=== PATIENT | female | born 1950 | race Caucasian/White ===

== ENCOUNTER 2017-07-13 07:27 | Inpatient (IN) ==
[2017-07-13 08:40] LABS: Basophils % 0.2 % (0.0-0.8); Eosinophils # 0.1 10*3/uL (0.0-0.87); Eosinophils % 0.8 % (0.00-10.9); Hematocrit 32.1 VOL% (35.7-47.0); Hemoglobin 10.6 GM/DL (12.0-16.0); Immature Granulocytes % 0.5 %; Immature Granulocytes Absolute 0.08 #; Lymphocytes # 0.8 10*3/uL (1.4-4.0); Lymphocytes % 4.7 % (21.3-54.2); Mean Corpuscular Hemoglobin 30 PG (27-34); Mean Corpuscular Volume 90.2 FL (87-102); Mean Platelet Volume 10.1 FL (9.6-12.0); Monocytes # 0.6 10*3/uL (0.11-0.8); Monocytes % 3.3 % (1.7-12.7); Neutrophils # 15.1 10*3/uL (1.4-7.4); Neutrophils % 90.5 % (38.7-73.9); Platelet Count 191 T/CUMM (130-400); Red Blood Count 3.56 MC/CUMM (3.8-5.5); White Blood Count 16.7 T/CUMM (4-12)
[2017-07-13 08:55] LABS: Apearance,Urine CLEAR (Clear); Bilirubin,Urine Negative (Negative); Blood, Urine Negative (Negative); Glucose,Urine (UA) Negative (Negative); Ketones,Urine 5 mg/dL (Negative); Mucus,Urine Occasional /LPF (Occasional); Nitrite,Urine Negative (Negative); Protein,Urine Negative; RBC,Urine 1 /HPF (0-4); Squamous Epithelial Cell,Urine Occasional /HPF (0-10); Urine Color Yellow (Yellow); Urine Specific Gravity 1.021 (1.001-1.035); WBC,Urine 1 /HPF (0-6)
[2017-07-13 08:58] LABS: Lactic Acid 2.8 MMOL/L (0.4-2.0)
[2017-07-13 08:59] LABS: Band Neutrophils 3 % (0-10); Lymphocytes 7 % (20-55); Microcytosis 1+; Segmented Neutrophils 89 % (50-85); Tear Drop Cells Slight; Total Cells Counted 100
[2017-07-13 09:09] LABS: Albumin 3.3 G/DL (3.4-5.0); Bilirubin,Total 0.4 MG/DL (0.2-1.0); Calcium 8.7 MG/DL (8.5-10.1); Magnesium 1.7 MG/DL (1.8-2.4); Osmolality,Calculated 280.8 MOS/KG (273-304); Potassium 4.3 MMOL/L (3.5-5.1); Total Protein 6.3 G/DL (6.4-8.3)
--- NOTE | 2017-07-13 09:25 | XRay Report ---
History: Fever Date: 07/13/2017 Study: Chest x-ray AP portable Comparison exam: June 12, 2015 The cardiac silhouette is not enlarged. There is a moderate-sized hiatal hernia. The mediastinal contours are unchanged. The pulmonary vasculature is not engorged. There is no gross pleural effusion. There is some minor strandy and hazy atelectasis/infiltrate in the left lung base. The lungs are otherwise clear. Osseous structures are unchanged. Impression: Mild atelectasis/infiltrate left lung base. Low-grade pneumonia cannot be excluded. Hiatal hernia Otherwise unchanged PROCEDURE INTERPRETED AT [facility] DEPARTMENT OF RADIOLOGY Final Report Signed by: Dr. Helga Mckinney
[2017-07-13] MEDS ORDERED: SODIUM CHLORIDE 0.9% IV STA (09:57)
[2017-07-13] MEDS ORDERED: KETOROLAC 30 MG/1 ML VIAL IV STA (09:57)
[2017-07-13] MEDS ORDERED: LEVOFLOXACIN INJ 750 MG in PREMIX 1 EACH IV STA (09:57)
--- NOTE | 2017-07-13 10:01 | Emergency Department Note ---
Renaldo Ford Brittany, am scribing for, and in the presence of, Salvatore Finnegan MD 08:01. Kain Ford Thomas, MD, personally performed the services described in this documentation, ascribed by Krytsal Macario in my presence, and it is both accurate and complete 955 . Arrival - Arrival Chief Complaint: Fever Stated Complaint: fever ED Nursing Triage Note: pt to er 05 via ems coming from [facility] with c/o having fever and aching all over. pt was given tylenol this am around 0400. Mode of Arrival: Stretcher Limitations: No Limitations Source: Patient, RN Notes Reviewed - History of Present Illness HPI Narrative: Patient is a 67 y/o white female with a history of COPD presenting to the ED by EMS from [facility] for further evaluation of fever and chills that began this morning. Patient received a dose of Tylenol around 0400 this morning. Patient states that for the past two weeks she has had some sore throat and was placed on abx per [facility], but states that she has not gotten any better. Patient reports having a productive cough with white phelgm, headache, nausea, constipation, and right foot swelling, but denies any abdominal pain. She states that she did notice some chest pain, described as a tightness this morning as well and has had some SOB. Patient states that she's also had some back pain, but reports that this pain is chronic and usually takes Percocet for this. Patient denies having any other complaints. Onset (ago): hour(s) Consistency: constant Allergies/Adverse Reactions: Allergies Allergy/AdvReac Type Severity Reaction Status Date / Time Penicillins Allergy Severe RASH Verified 07/13/17 07:33 Home Medications: Home Medications Medication Instructions Recorded Confirmed Type Glimepiride 2 mg PO BID 03/28/15 02/06/17 History Atorvastatin Calcium 20 mg PO BEDTIME 07/29/15 02/06/17 History HYDROcodone/ACETAMIN 10-325 [[place] 1 tablet PO TID 07/29/15 02/06/17 History 10-325] Pantoprazole Sodium 40 mg PO DAILY 07/29/15 02/06/17 History metFORMIN [Glucophage] 1,000 mg PO BID 07/29/15 02/06/17 History FLUoxetine [PROzac] 60 mg PO DAILY 10/30/15 02/06/17 History Ferrous Sulfate 325 mg PO BID 05/02/16 02/06/17 History Levothyroxine Tab [Synthroid Tab] 0.05 mg PO DAILY 05/02/16 02/06/17 History Albuterol/Ipratropium Neb [Duoneb] 3 mg RESP TX Q8HR PRN 02/06/17 02/06/17 History Fluticasone/Salmeterol 250-50 1 puff INH BID 02/06/17 02/06/17 History [Advair 250-50] Folic Acid Tab 1 mg PO DAILY 02/06/17 02/06/17 History Lisinopril 20 mg PO DAILY 02/06/17 02/06/17 History Meloxicam 7.5 mg PO BID 02/06/17 02/06/17 History Methotrexate Tab 6 tablet PO Q7DAY 02/06/17 02/06/17 History Multivitamin [Multivitamins] 1 each PO DAILY 02/06/17 02/06/17 History Phenol 1.4% Throat [place] 2 sprays PO Q2H PRN 02/06/17 02/06/17 History [Chloraseptic [place]] Pregabalin [Lyrica] 150 mg PO BID 02/06/17 02/06/17 History Trazodone HCl 100 mg PO BEDTIME 02/06/17 02/06/17 History clonazePAM TAB [KlonoPIN] 0.25 mg PO TID 02/06/17 02/06/17 History sulfaSALAzine [Azulfidine] 500 mg PO BID 02/06/17 02/06/17 History predniSONE TAB [PredniSONE] 5 mg PO DAILY 02/07/17 02/07/17 History Review of System - Review of System 12 point system: reviewed and no additional remarkable complaints except as stated - Review of System Constitutional: Present: chills, fever Head/Ears/Nose/Throat: Present: sore throat Respiratory: Present: cough, respiratory distress Cardiovascular: Present: chest pain Gastrointestinal: Present: nausea, constipation. Absent: vomiting Genitourinary female: Absent: dysuria, frequency Musculoskeletal: Present: back pain, other (body aches; right foot swelling) Neurological: Present: headache. Absent: numbness, paresthesias Medical,Surgical,& Family Hx - Medical History Cardio: History of: Hypertension, Cardiovascular Problems Psychological: History of: Anxiety Disorders, Depression, Psychiatric/Substance Abuse Tx No history of: ADHD, Behavior Problems, Bipolar Disorder, Previous Suicide Attempt, Schizophrenia, Violent Behavior, Psychiatric Problems Neurology: History of: Peripheral Neuropathy, Vertigo HEENT: History of: Glaucoma Endocrine: History of: Diabetes Mellitus (NIDDM), Dyslipidemia, Thyroid Disorder (HYPOTHRIODISM), Endocrine Problems (diabetic neuropathy) No history of: Diabetes Mellitus (IDDM) Rheumatology: History of;: Rheumatoid Arthritis, Rheumatological Problems No history of;: Gout Respiratory: History of: COPD, Respiratory Problems Genitourinary: History of: Recurring Urinary Tract Infections Gastrointestinal: History of: Diverticulitis/ Diverticulosis, GERD, Gastrointestinal Bleed, Pancreatitis (YEARS AGO), Polyps, GI Problems Comment Only: Hemorrhoids (HEMORRHIODS REMOVED 15 YEARS AGO) Musculoskeletal: History of: Back/Neck Problems, Herniated Disk, Osteoporosis Comment Only: Musculoskeletal Problems (COMPRESSION FRACTURE 1 YEAR) Hematology: History of: Clotting Problems (LEFT LEG 1979) Reproductive: History of: Abnormal Pap Smear (40 years ago) - Surgical History Neurologic Surgeries: Patient denies: Neurologic Surgery Abdominal Surgeries: Surgical HX of: Abdominal Surgery (polyps removed 1994), EGD (1989), Hernia Repair (1989) Reproductive Surgeries: Surgical HX of;: Section (1981), Tubal Ligation Orthopedic Surgeries: Surgical HX of;: Orthopedic Surgery, Total Knee Replacement (3 BILATERAL KNEE REPLACEMENT / LAST ONE 5 YEARS AGO) - Family History Family History: Reports;: Family Cancer (colon cancer (mom)), Family Diabetes ( mom), Family Heart Disease (mom, dad), Family Hypertension (mom, dad), Family Psychiatric Problems (daughter) - Social History Smoking Status: Never smoker Frequency of Alcohol Use: None Type of Drug Use: None Exam Vital Signs: Vital Signs Temperature 100.8 F H 07/13/17 07:28 Pulse Rate 111 H 07/13/17 07:28 Respiratory Rate 18 07/13/17 08:52 Blood Pressure 108/71 07/13/17 07:28 O2 Sat by Pulse Oximetry 93 L 07/13/17 07:28 - General General appearance: alert, in no apparent distress - Head Head exam: Present: atraumatic, normocephalic - Eye Eye exam: Present: EOMI. Absent: conjunctival injection, periorbital swelling, periorbital tenderness - ENT ENT exam: Present: normal oropharynx, mucous membranes moist, TM's normal bilaterally - Neck Neck exam: Present: full ROM, trachea midline - Chest Chest inspection: Present: symmetric chest wall rise - Respiratory Respiratory exam: Present: wheezes (mild diffuse wheezes to bilateral lung [place]). Absent: normal lung sounds bilaterally, respiratory distress - Cardiovascular Cardiovascular exam: Present: regular rate, normal rhythm, normal heart sounds - Abdominal Exam Abdominal exam: Present: soft. Absent: distention, tenderness - Extremities Exam Extremities exam: Present: normal capillary refill. Absent: pedal edema, calf tenderness - Neurological Exam Neurological exam: Present: alert, oriented X3. Absent: motor sensory deficit - Psychiatric Psychiatric exam: Present: normal affect, normal mood - Skin Skin exam: Present: warm, dry, normal color Course - Reevaluation(s) Reevaluation #1: unchanged Time: 10:01 - Consultations Consultation #1: Jasper Lacy Time: 10:01 Results - Labs CBC & BMP: 07/13/17 08:26 07/13/17 08:26 Lab Results: I have reviewed the patients labs Labs: Laboratory Tests 07/13/17 08:26 WBC 16.7 H RBC 3.56 L Hgb 10.6 L Hct 32.1 L Plt Count 191 Neut % (Auto) 90.5 H Lymph % (Auto) 4.7 L Neut # (Auto) 15.1 H Lymph # (Auto) 0.8 L Laboratory Tests 07/13/17 07/13/17 07/13/17 08:26 08:26 08:26 Total Counted 100 Segmented Neutrophils 89 H Band Neutrophils 3 Lymphocytes 7 L Monocytes 1 L Microcytosis 1+ Tear Drop Cells Slight Lactic Acid 2.8 H Urine Color Yellow Urine Appearance Clear Urine pH 7.0 Ur Specific [place] 1.021 Urine Protein Negative Urine Glucose (UA) Negative Urine Ketones 5 Urine Blood Negative Urine Nitrate Negative Urine Bilirubin Negative Urine Urobilinogen 2.0 H Urine Leukocytes Negative Urine RBC 1 Urine WBC 1 Ur Squamous Epith Cells Occasional Urine Mucus Occasional Microbiology 07/13/17 08:26 Nasal Aspirate Influenza Types A,B Antigen (ELEAZAR) - Final Negative for Influenza A Ag Negative for Influenza B Ag Laboratory Tests 07/13/17 08:26 Sodium 137 Potassium 4.3 Chloride 104 Carbon Dioxide 26 BUN 15 Creatinine 0.90 Glucose 221 H Magnesium 1.7 L Total Protein 6.3 L Albumin 3.3 L - Diagnostic Findings Procedure: Chest x-ray: report reviewed by me (No acute changes.; Rad report shows concern for LLL infiltrate) Disposition Clinical Impression: Sepsis, Acute pharyngitis, Leukocytosis, unspecified, Lactic acidemia, LLL pneumonia Case discussed with: patient Disposition: Still a Patient Condition: Stable Time of Disposition: 10:01
[2017-07-13] MEDS ORDERED: LEVOFLOXACIN INJ 150 ML IV ONE (10:23)
[2017-07-13] MEDS ORDERED: KETOROLAC 30 MG/1 ML VIAL ONE (10:23)
[2017-07-13] MEDS ORDERED: ONDANSETRON 4 MG/2 ML VIAL IV PRN (12:00)
[2017-07-13] MEDS ORDERED: GLUCAGON 1 MG VIAL IM PRN (12:00)
[2017-07-13] MEDS ORDERED: HYDROmorphone 2 MG/1 ML VIAL IV PRN (12:00)
[2017-07-13] MEDS ORDERED: DEXTROSE 50% 25 GM/50 ML SYRINGE IV PRN (12:00)
[2017-07-13] MEDS ORDERED: ACETAMINOPHEN 325 MG TABLET PO PRN (12:00)
[2017-07-13] MEDS: INSULIN REGULAR 100 UNIT/ML SUBCUT SCH ×3 (12:23→21:16)
[2017-07-13] MEDS: BUDESONIDE 0.25 MG/2 ML NEB RESP TX SCH ×2 (14:03→18:49)
[2017-07-13] MEDS: ALBUTEROL/IPRATROPIUM 3 ML NEB RESP TX SCH ×3 (14:03→23:34)
--- NOTE | 2017-07-13 14:07 | Internal Med History&Physical ---
Assessment and Plan (1) Anxiety and depression Status: Chronic Current Visit: Yes (2) LLL pneumonia Status: Acute Current Visit: Yes (3) COPD (chronic obstructive pulmonary disease) Status: Chronic Current Visit: Yes Qualifiers: COPD type: COPD with acute exacerbation Qualified Code(s): J44.1 - Chronic obstructive pulmonary disease with (acute) exacerbation (4) Chronic back pain Status: Chronic Current Visit: Yes Qualifiers: Back pain location: low back pain (5) Debility Status: Chronic Current Visit: Yes (6) Diabetes Status: Chronic Current Visit: Yes Qualifiers: Diabetes mellitus type: type 2 Diabetes mellitus complication status: without complication Diabetes mellitus termite inspector insulin use: without usp use Qualified Code(s): E11.9 - Type 2 diabetes mellitus without complications (7) Hypertension Status: Chronic Current Visit: Yes Qualifiers: Hypertension type: essential hypertension Qualified Code(s): I10 - Essential (primary) hypertension History of Present Illness Chief complaint: shortness of breath; hypoxia History of present illness: Ms. Monk is a 67 year old female patient who is a resident of [facility]. She has history of COPD, allergic rhinitis, HTN, DM, OA and chronic pain followed by [facility] pain management, dementia and anxiety, who presented to ER with hypoxia, URI symptoms and admitted for pneumonia. She has worsening dementia and was placed in detention about one year ago, because family could no longer care for her at home. She has been on benzodiazepine and opiates for years and has dependency. Have been attempting to cut back at detention, but difficult, because patient is frequently asking for pain management, and knows when she has her "pills". Dr. Au has been consulted to see her. Unclear whether she is candidate for injections or has had them in the past. Should be in detention records. Will ask for those. Home Medications Medication Instructions Recorded Confirmed Type Glimepiride 2 mg PO BID 03/28/15 07/13/17 History Pantoprazole Sodium 40 mg PO DAILY 07/29/15 07/13/17 History metFORMIN [Glucophage] 1,000 mg PO BID 07/29/15 07/13/17 History FLUoxetine [PROzac] 60 mg PO DAILY 10/30/15 07/13/17 History Ferrous Sulfate 325 mg PO BID 05/02/16 07/13/17 History Levothyroxine Tab [Synthroid Tab] 0.05 mg PO DAILY 05/02/16 07/13/17 History Albuterol/Ipratropium Neb [Duoneb] 3 mg RESP TX Q8HR PRN 02/06/17 07/13/17 History Fluticasone/Salmeterol 250-50 1 puff INH BID 02/06/17 07/13/17 History [Advair 250-50] Folic Acid Tab 1 mg PO DAILY 02/06/17 07/13/17 History Lisinopril 20 mg PO DAILY 02/06/17 07/13/17 History Meloxicam 7.5 mg PO BID 02/06/17 07/13/17 History Methotrexate Tab 6 tablet PO TU 02/06/17 07/13/17 History Multivitamin [Multivitamins] 1 each PO QAM 02/06/17 07/13/17 History Pregabalin [Lyrica] 150 mg PO BID 02/06/17 07/13/17 History Trazodone HCl 100 mg PO BEDTIME 02/06/17 07/13/17 History clonazePAM TAB [KlonoPIN] 0.25 mg PO TID 02/06/17 07/13/17 History sulfaSALAzine [Azulfidine] 500 mg PO BID 02/06/17 07/13/17 History predniSONE TAB [PredniSONE] 5 mg PO DAILY 02/07/17 07/13/17 History Acetaminophen Tab [Tylenol Tab] 1,000 mg PO Q6H PRN 07/13/17 07/13/17 History Cetirizine Tab [ZyrTEC Tab] 10 mg PO DAILY 07/13/17 07/13/17 History Cyanocobalamin Inj [Vitamin B12 1,000 mcg IM Q30D 07/13/17 07/13/17 History Inj] Magnesium Hydroxide Susp [Milk of 30 ml PO Q4H PRN 07/13/17 07/13/17 History Magnesia] Melatonin 5 mg PO BEDTIME 07/13/17 07/13/17 History Oxycodone HCl/Acetaminophen 1 each PO TID 07/13/17 07/13/17 History [Percocet 10-325 mg Tablet] Phenol 1.4% Throat [place] 2 - 3 spray PO Q4H PRN 07/13/17 07/13/17 History [Chloraseptic [place]] Rosuvastatin [Crestor] 10 mg PO BEDTIME 07/13/17 07/13/17 History guaiFENesin/DM LIQUID [Robitussin 10 ml PO Q4H PRN 07/13/17 07/13/17 History Dm] Allergies Allergy/AdvReac Type Severity Reaction Status Date / Time Penicillins Allergy Severe RASH Verified 07/13/17 07:33 Medical,Surgical,& Family Hx - Medical History Cardio: History of: Hypertension, Cardiovascular Problems Psychological: History of: Anxiety Disorders, Depression, Psychiatric/Substance Abuse Tx No history of: ADHD, Behavior Problems, Bipolar Disorder, Previous Suicide Attempt, Schizophrenia, Violent Behavior, Psychiatric Problems Neurology: History of: Peripheral Neuropathy, Vertigo HEENT: History of: Glaucoma Endocrine: History of: Diabetes Mellitus (NIDDM), Dyslipidemia, Thyroid Disorder (HYPOTHRIODISM), Endocrine Problems (diabetic neuropathy) No history of: Diabetes Mellitus (IDDM) Rheumatology: History of;: Rheumatoid Arthritis, Rheumatological Problems No history of;: Gout Respiratory: History of: COPD, Respiratory Problems Genitourinary: History of: Recurring Urinary Tract Infections Gastrointestinal: History of: Diverticulitis/ Diverticulosis, GERD, Gastrointestinal Bleed, Pancreatitis (YEARS AGO), Polyps, GI Problems Comment Only: Hemorrhoids (HEMORRHIODS REMOVED 15 YEARS AGO) Musculoskeletal: History of: Back/Neck Problems, Herniated Disk, Osteoporosis Comment Only: Musculoskeletal Problems (COMPRESSION FRACTURE 1 YEAR) Hematology: History of: Clotting Problems (LEFT LEG 1979) Reproductive: History of: Abnormal Pap Smear (40 years ago) - Surgical History Neurologic Surgeries: Patient denies: Neurologic Surgery Abdominal Surgeries: Surgical HX of: Abdominal Surgery (polyps removed 1994), EGD (1989), Hernia Repair (1989) Reproductive Surgeries: Surgical HX of;: Section (1981), Tubal Ligation Orthopedic Surgeries: Surgical HX of;: Orthopedic Surgery, Total Knee Replacement (3 BILATERAL KNEE REPLACEMENT / LAST ONE 5 YEARS AGO) - Family History Family History: Reports;: Family Cancer (colon cancer (mom)), Family Diabetes ( mom), Family Heart Disease (mom, dad), Family Hypertension (mom, dad), Family Psychiatric Problems (daughter) - Social History Smoking Status: Never smoker Frequency of Alcohol Use: None Type of Drug Use: None Marital Status: Lives With:: detention Functional capacity: uses cane/walker - Constitutional Constitutional: Present: lethargy, malaise - EENT Nose, mouth and throat: Present: sore throat - Cardiovascular Cardiovascular: Absent: chest pain at rest, chest pain with activity - Respiratory Respiratory: Present: cough, dyspnea on exertion, wheezing - Gastrointestinal Gastrointestinal: Absent: nausea - Musculoskeletal Musculoskeletal: Present: arthralgias, back pain - Neurological Neurological: Present: memory loss - Psychiatric Psychiatric: Present: anxiety Exam - Constitutional Vitals: Period Temp Pulse Resp BP Sys/Elise Pulse Ox Last 24 Hr 100.3 F-100.8 F 91-111 18-20 107-121/58-71 93-96 General appearance: no acute distress - Head Head exam: Present: normocephalic - Eye Eye exam: Present: EOMI - Respiratory Respiratory exam: Present: prolonged expiratory phase, rhonchi (scattered and diffuse) - Cardiovascular Cardiovascular exam: Present: regular rate and rhythm - GI/Abdominal GI/Abdominal exam: Present: normal bowel sounds, soft. Absent: tenderness - Extremities Exam Extremities exam: Absent: edema - Neurological Exam Neurological exam: Present: alert - Psychiatric Psychiatric exam: Present: normal mood - Skin Skin exam: Present: warm, dry Results - Labs CBC & BMP: 07/14/17 08:32 07/14/17 04:29 - EKG EKG shows: sinus rhythm - Diagnostic Findings Procedure: Chest x-ray: report reviewed by me, image reviewed by me
[2017-07-13] MEDS: LIDOCAINE 5% PATCH TRANSDERM SCH (16:00)
[2017-07-13] MEDS ORDERED: MAGNESIUM SULF RIDER 2 GM in PREMIX 1 EACH IV ONE (20:51)
[2017-07-13] MEDS ORDERED: PHENOL 1.4% THROAT SPRAY 177 ML BOTTLE PO PRN (20:52)
[2017-07-13] MEDS ORDERED: MAGNESIUM HYDROXIDE SUSP 30 ML UDCUP PO PRN (20:52)
[2017-07-13] MEDS: FERROUS SULFATE 325 MG TABLET PO SCH (21:15)
[2017-07-13] MEDS: traZODone 50 MG TABLET PO SCH (21:15)
[2017-07-13] MEDS: MELATONIN 3 MG TABLET PO SCH (21:15)
[2017-07-13] MEDS: PREGABALIN 75 MG CAPSULE PO SCH (21:15)
[2017-07-13] MEDS: DOCUSATE SODIUM 100 MG CAPSULE PO SCH (21:15)
[2017-07-13] MEDS: KETOROLAC 15 MG/1 ML VIAL IV SCH (21:16)
[2017-07-13] MEDS: sulfaSALAzine 500 MG TABLET PO SCH (21:16)
[2017-07-13] MEDS: GLIMEPIRIDE 2 MG TABLET PO SCH (21:18)
[2017-07-13] MEDS: metFORMIN 500 MG TABLET PO SCH (21:22)
[2017-07-14] MEDS: ALBUTEROL/IPRATROPIUM 3 ML NEB RESP TX SCH ×5 (03:21→19:42)
[2017-07-14 05:42] LABS: Basophils % 0.2 % (0.0-0.8); Eosinophils # 0.2 10*3/uL (0.0-0.87); Eosinophils % 1.5 % (0.00-10.9); Hemoglobin 8.9 GM/DL (12.0-16.0); Immature Granulocytes % 0.6 %; Immature Granulocytes Absolute 0.06 #; Lymphocytes # 1.4 10*3/uL (1.4-4.0); Lymphocytes % 14.7 % (21.3-54.2); Mean Corpuscular HGB Conc 31.8 GM/DL (32-36); Mean Corpuscular Hemoglobin 30 PG (27-34); Mean Platelet Volume 10.1 FL (9.6-12.0); Monocytes # 0.5 10*3/uL (0.11-0.8); Monocytes % 4.9 % (1.7-12.7); Neutrophils # 7.6 10*3/uL (1.4-7.4); Neutrophils % 78.1 % (38.7-73.9); Platelet Count 154 T/CUMM (130-400); Red Blood Count 3.01 MC/CUMM (3.8-5.5); Red Cell Distribution Width 16.8 % (9.3-17.3); White Blood Count 9.7 T/CUMM (4-12)
[2017-07-14] MEDS: KETOROLAC 15 MG/1 ML VIAL IV SCH ×3 (06:16→21:38)
[2017-07-14] MEDS: LEVOTHYROXINE 50 MCG TABLET PO SCH (06:17)
[2017-07-14 06:21] LABS: Albumin 2.7 G/DL (3.4-5.0); Calcium 8.1 MG/DL (8.5-10.1); Magnesium 2.5 MG/DL (1.8-2.4); Osmolality,Calculated 282.4 MOS/KG (273-304); Potassium 4.2 MMOL/L (3.5-5.1); Total Protein 5.5 G/DL (6.4-8.3)
[2017-07-14] MEDS: BUDESONIDE 0.25 MG/2 ML NEB RESP TX SCH ×2 (07:20→19:42)
[2017-07-14 08:43] LABS: Basophils % 0.3 % (0.0-0.8); Eosinophils # 0.2 10*3/uL (0.0-0.87); Eosinophils % 1.6 % (0.00-10.9); Hematocrit 31.8 VOL% (35.7-47.0); Immature Granulocytes % 0.8 %; Immature Granulocytes Absolute 0.09 #; Lymphocytes # 1.8 10*3/uL (1.4-4.0); Lymphocytes % 15.4 % (21.3-54.2); Mean Corpuscular HGB Conc 31.4 GM/DL (32-36); Mean Corpuscular Hemoglobin 30 PG (27-34); Mean Corpuscular Volume 94.9 FL (87-102); Mean Platelet Volume 10.1 FL (9.6-12.0); Monocytes # 0.5 10*3/uL (0.11-0.8); Monocytes % 4.6 % (1.7-12.7); Neutrophils # 8.8 10*3/uL (1.4-7.4); Neutrophils % 77.3 % (38.7-73.9); Platelet Count 192 T/CUMM (130-400); Red Blood Count 3.35 MC/CUMM (3.8-5.5); Red Cell Distribution Width 16.9 % (9.3-17.3); White Blood Count 11.4 T/CUMM (4-12)
[2017-07-14] MEDS: INSULIN REGULAR 100 UNIT/ML SUBCUT SCH ×4 (10:18→21:37)
[2017-07-14] MEDS: LEVOFLOXACIN INJ 500 MG in PREMIX 1 EACH IV SCH (10:19)
[2017-07-14] MEDS: LIDOCAINE 5% PATCH TRANSDERM SCH (10:25)
[2017-07-14] MEDS: GLIMEPIRIDE 2 MG TABLET PO SCH ×2 (10:26→21:37)
[2017-07-14] MEDS: DOCUSATE SODIUM 100 MG CAPSULE PO SCH ×2 (10:27→21:36)
[2017-07-14] MEDS: sulfaSALAzine 500 MG TABLET PO SCH ×2 (10:27→21:35)
[2017-07-14] MEDS: FERROUS SULFATE 325 MG TABLET PO SCH ×2 (10:27→21:37)
[2017-07-14] MEDS: metFORMIN 500 MG TABLET PO SCH ×2 (10:27→21:36)
[2017-07-14] MEDS: PREGABALIN 75 MG CAPSULE PO SCH ×2 (10:28→21:35)
[2017-07-14] MEDS: CETIRIZINE 10 MG TABLET PO SCH (10:29)
[2017-07-14] MEDS: FLUoxetine 20 MG CAPSULE PO SCH (10:29)
[2017-07-14] MEDS: PANTOPRAZOLE 40 MG TABLET PO SCH (10:29)
[2017-07-14] MEDS: methylPREDNISolone SOD SUC 40 MG/1 ML VIAL IV SCH ×2 (13:11→23:59)
[2017-07-14] MEDS: INSULIN GLARGINE 100 UNIT/ML SUBCUT SCH (13:11)
--- NOTE | 2017-07-14 16:14 | Pain Management Consult Note ---
Assessment and Plan (1) Lumbago with sciatica, left side Problem details: Low back and left lower extremity pain Status: Acute Assessment and plan: 07/14/2017. The patient is a very pleasant and interesting 67-year-old female with long-standing low back pain. She also has pain that radiates down the posterior lateral left lower extremity. Goes down to her ankle. She in the past saw 1 of the pain physicians at [facility] but has not seen them in some time. She has not seen him since her admission to the half-way. She has a diagnosis of dementia, however she did recognize who I was from seening my image on TV. She immediately started talking about the pain medicines and stated that she really needs them every 4-6 hours. Past treatments includes treatment at [facility] with her pain management team. She has not seen him in some time. She apparently had an MRI and some type of injections at that time. She could not tell me how long those helped her before. In regards to her medical pain management, I agree that she is at increased risk for issues related to medicines including the mixing of benzodiazepines and opioids. I explained to her the risk of sudden and pulmonary compromise with increased dose of opioids and thus we would have to keep them very limited. She seemed to understand this. With her ongoing pulmonary issues we will have to watch closely. We will also try adjuvants such as gabapentin to control the neuropathic component of her pain. At some point she may need injection therapy. Ultimately, the thing that might help her the most would be mobilization and weight loss and core strengthening, however she appears not to be overly motivated at this time. david Henley for [employer]. Current Visit: Yes Qualifiers: Chronicity: chronic Back pain laterality: left Qualified Code(s): M54.42 - Lumbago with sciatica, left side; G89.29 - Other chronic pain History of Present Illness Chief complaint: Low back pain History of present illness: Ms. Monk is a 67 year old female with long-standing low back pain. Is a constant throbbing aching pain. It does radiate down the left lower extremity to the ankle. It is been there for several years. It has gotten somewhat worse over time. Is also worse with inactivity and with transitioning. Home Medications Medication Instructions Recorded Confirmed Type Glimepiride 2 mg PO BID 03/28/15 07/13/17 History Pantoprazole Sodium 40 mg PO DAILY 07/29/15 07/13/17 History metFORMIN [Glucophage] 1,000 mg PO BID 07/29/15 07/13/17 History FLUoxetine [PROzac] 60 mg PO DAILY 10/30/15 07/13/17 History Ferrous Sulfate 325 mg PO BID 05/02/16 07/13/17 History Levothyroxine Tab [Synthroid Tab] 0.05 mg PO DAILY 05/02/16 07/13/17 History Albuterol/Ipratropium Neb [Duoneb] 3 mg RESP TX Q8HR PRN 02/06/17 07/13/17 History Fluticasone/Salmeterol 250-50 1 puff INH BID 02/06/17 07/13/17 History [Advair 250-50] Folic Acid Tab 1 mg PO DAILY 02/06/17 07/13/17 History Lisinopril 20 mg PO DAILY 02/06/17 07/13/17 History Meloxicam 7.5 mg PO BID 02/06/17 07/13/17 History Methotrexate Tab 6 tablet PO TU 02/06/17 07/13/17 History Multivitamin [Multivitamins] 1 each PO QAM 02/06/17 07/13/17 History Pregabalin [Lyrica] 150 mg PO BID 02/06/17 07/13/17 History Trazodone HCl 100 mg PO BEDTIME 02/06/17 07/13/17 History clonazePAM TAB [KlonoPIN] 0.25 mg PO TID 02/06/17 07/13/17 History sulfaSALAzine [Azulfidine] 500 mg PO BID 02/06/17 07/13/17 History predniSONE TAB [PredniSONE] 5 mg PO DAILY 02/07/17 07/13/17 History Acetaminophen Tab [Tylenol Tab] 1,000 mg PO Q6H PRN 07/13/17 07/13/17 History Cetirizine Tab [ZyrTEC Tab] 10 mg PO DAILY 07/13/17 07/13/17 History Cyanocobalamin Inj [Vitamin B12 1,000 mcg IM Q30D 07/13/17 07/13/17 History Inj] Magnesium Hydroxide Susp [Milk of 30 ml PO Q4H PRN 07/13/17 07/13/17 History Magnesia] Melatonin 5 mg PO BEDTIME 07/13/17 07/13/17 History Oxycodone HCl/Acetaminophen 1 each PO TID 07/13/17 07/13/17 History [Percocet 10-325 mg Tablet] Phenol 1.4% Throat [place] 2 - 3 spray PO Q4H PRN 07/13/17 07/13/17 History [Chloraseptic [place]] Rosuvastatin [Crestor] 10 mg PO BEDTIME 07/13/17 07/13/17 History guaiFENesin/DM LIQUID [Robitussin 10 ml PO Q4H PRN 07/13/17 07/13/17 History Dm] Allergies Allergy/AdvReac Type Severity Reaction Status Date / Time Penicillins Allergy Severe RASH Verified 07/13/17 07:33 Medical,Surgical,& Family Hx - Medical History Cardio: History of: Hypertension, Cardiovascular Problems Psychological: History of: Anxiety Disorders, Depression, Psychiatric/Substance Abuse Tx No history of: ADHD, Behavior Problems, Bipolar Disorder, Previous Suicide Attempt, Schizophrenia, Violent Behavior, Psychiatric Problems Neurology: History of: Peripheral Neuropathy, Vertigo HEENT: History of: Glaucoma Endocrine: History of: Diabetes Mellitus (NIDDM), Dyslipidemia, Thyroid Disorder (HYPOTHRIODISM), Endocrine Problems (diabetic neuropathy) No history of: Diabetes Mellitus (IDDM) Rheumatology: History of;: Rheumatoid Arthritis, Rheumatological Problems No history of;: Gout Respiratory: History of: COPD, Respiratory Problems Genitourinary: History of: Recurring Urinary Tract Infections Gastrointestinal: History of: Diverticulitis/ Diverticulosis, GERD, Gastrointestinal Bleed, Pancreatitis (YEARS AGO), Polyps, GI Problems Comment Only: Hemorrhoids (HEMORRHIODS REMOVED 15 YEARS AGO) Musculoskeletal: History of: Back/Neck Problems, Herniated Disk, Osteoporosis Comment Only: Musculoskeletal Problems (COMPRESSION FRACTURE 1 YEAR) Hematology: History of: Clotting Problems (LEFT LEG 1979) Reproductive: History of: Abnormal Pap Smear (40 years ago) - Surgical History Neurologic Surgeries: Patient denies: Neurologic Surgery Abdominal Surgeries: Surgical HX of: Abdominal Surgery (polyps removed 1994), EGD (1989), Hernia Repair (1989) Reproductive Surgeries: Surgical HX of;: Section (1981), Tubal Ligation Orthopedic Surgeries: Surgical HX of;: Orthopedic Surgery, Total Knee Replacement (3 BILATERAL KNEE REPLACEMENT / LAST ONE 5 YEARS AGO) - Family History Family History: Reports;: Family Cancer (colon cancer (mom)), Family Diabetes ( mom), Family Heart Disease (mom, dad), Family Hypertension (mom, dad), Family Psychiatric Problems (daughter) - Social History Smoking Status: Never smoker Frequency of Alcohol Use: None Type of Drug Use: None - Constitutional Constitutional: Present: fatigue - Cardiovascular Cardiovascular: Present: dyspnea on exertion - Gastrointestinal Gastrointestinal: Present: constipation - Musculoskeletal Musculoskeletal: Present: arthralgias, back pain, joint swelling - Neurological Neurological: Present: paresthesias Exam - Constitutional Vitals: Period Temp Pulse Resp BP Sys/Elise Pulse Ox Last 24 Hr 97.2 F-98.0 F 75-88 16-22 101-132/52-74 92-100 General appearance: no acute distress, over weight - Eye Eye exam: Present: EOMI - Respiratory Respiratory exam: Present: rhonchi - Cardiovascular Cardiovascular exam: Present: RRR - GI/Abdominal GI/Abdominal exam: Present: hypoactive bowel sounds - Back Exam Back exam: Present: vertebral tenderness - Neurological Exam Neurological exam: Present: alert, oriented X3, abnormal gait, CN II-XII intact , motor sensory deficit (Left lower extremity with left foot weakness and L5\S1 sensory loss) Results - Labs CBC & BMP: 07/14/17 08:32 07/14/17 04:29
--- NOTE | 2017-07-14 18:55 | XRay Report ---
History: Lumbar pain Date: 07/14/2017 Study: Lumbar spine 3 views Comparison exam: Lumbar spine CT October 30, 2015 There is no acute fracture. There is moderate wedge compression of the L4 vertebral body. There is mild to moderate anterior spondylosis in the mid to lower lumbar spine. There is mild degenerative disc narrowing at L4-L5 and L5-S1. There is moderate facet hypertrophy. There is no focal lytic or blastic lesion. The sacroiliac joints are normal. Impression: Chronic L4 compression fracture, unchanged from 2015. Degenerative disc disease PROCEDURE INTERPRETED AT [facility] DEPARTMENT OF RADIOLOGY Final Report Signed by: Dr. Helga Mckinney
--- NOTE | 2017-07-14 21:21 | Internal Med Progress Note ---
Assessment and Plan (1) Anxiety and depression Status: Chronic Current Visit: Yes (2) LLL pneumonia Status: Acute Current Visit: Yes (3) COPD (chronic obstructive pulmonary disease) Status: Chronic Current Visit: Yes Qualifiers: COPD type: COPD with acute exacerbation Qualified Code(s): J44.1 - Chronic obstructive pulmonary disease with (acute) exacerbation (4) Chronic back pain Status: Chronic Current Visit: Yes Qualifiers: Back pain location: low back pain (5) Debility Status: Chronic Current Visit: Yes (6) Diabetes Status: Chronic Current Visit: Yes Qualifiers: Diabetes mellitus type: type 2 Diabetes mellitus complication status: without complication Diabetes mellitus terminal operations manager insulin use: without custodial use Qualified Code(s): E11.9 - Type 2 diabetes mellitus without complications (7) Hypertension Status: Chronic Current Visit: Yes Qualifiers: Hypertension type: essential hypertension Qualified Code(s): I10 - Essential (primary) hypertension Internal Medicine - PN: Subj Interval history: Ms. Monk is a 67 year old female patient who is a resident of [facility]. She has history of COPD, allergic rhinitis, HTN, DM, OA and chronic pain followed by [place] pain management, dementia and anxiety, who presented to ER with hypoxia, URI symptoms and admitted for pneumonia. She has worsening dementia and was placed in senior living about one year ago, because family could no longer care for her at home. She has been on benzodiazepine and opiates for years and has dependency. Have been attempting to cut back at senior living, but difficult, because patient is frequently asking for pain management, and knows when she has her "pills". Dr. Au has been consulted to see her. Unclear whether she is candidate for injections or has had them in the past. Should be in senior living records. Will ask for those. She reports not feeling well today, Saturday, Jul 14, and will ask Dr. Au to see her to help with pain management. She has dependency on opiates and she expresses concern for opiates more than the pneumonia she's being treated for. Exam (Progress Note) - Constitutional Vitals: Period Temp Pulse Resp BP Sys/Elise Pulse Ox Last 24 Hr 97.2 F-98.0 F 75-102 16-22 109-140/52-67 92-100 General appearance: no acute distress - Respiratory Respiratory exam: Present: clear to auscultation bilaterally - Cardiovascular Cardiovascular exam: Present: regular rate and rhythm - GI/Abdominal GI/Abdominal exam: Present: soft. Absent: tenderness - Extremities Exam Extremities exam: Absent: edema - Neurological Exam Neurological exam: Present: alert - Psychiatric Psychiatric exam: Present: normal mood - Skin Skin exam: Present: warm, dry Results - Labs CBC & BMP: 07/14/17 08:32 07/14/17 04:29
[2017-07-14] MEDS: MELATONIN 3 MG TABLET PO SCH (21:35)
[2017-07-14] MEDS: traZODone 50 MG TABLET PO SCH (21:36)
[2017-07-14] MEDS: GABAPENTIN 100 MG CAPSULE PO SCH (21:36)
[2017-07-14] MEDS: oxyCODONE/ACETAMINOPHEN 5-325 MG TABLET PO PRN (21:36)
[2017-07-14] MEDS: LORazepam 2 MG/1 ML VIAL IV PRN (21:44)
[2017-07-15] MEDS: ALBUTEROL/IPRATROPIUM 3 ML NEB RESP TX SCH ×7 (00:04→23:10)
[2017-07-15] MEDS: oxyCODONE/ACETAMINOPHEN 5-325 MG TABLET PO PRN ×2 (05:58→15:32)
[2017-07-15] MEDS: KETOROLAC 15 MG/1 ML VIAL IV SCH ×3 (05:59→23:06)
[2017-07-15] MEDS: LEVOTHYROXINE 50 MCG TABLET PO SCH (06:00)
[2017-07-15] MEDS: BUDESONIDE 0.25 MG/2 ML NEB RESP TX SCH ×2 (07:13→19:57)
[2017-07-15] MEDS: INSULIN REGULAR 100 UNIT/ML SUBCUT SCH ×4 (09:03→21:08)
[2017-07-15] MEDS: FERROUS SULFATE 325 MG TABLET PO SCH ×2 (09:07→20:32)
[2017-07-15] MEDS: GABAPENTIN 100 MG CAPSULE PO SCH ×3 (09:07→20:34)
[2017-07-15] MEDS: PREGABALIN 75 MG CAPSULE PO SCH (09:08)
[2017-07-15] MEDS: metFORMIN 500 MG TABLET PO SCH ×2 (09:08→20:32)
[2017-07-15] MEDS: CETIRIZINE 10 MG TABLET PO SCH (09:09)
[2017-07-15] MEDS: sulfaSALAzine 500 MG TABLET PO SCH ×2 (09:09→20:32)
[2017-07-15] MEDS: GLIMEPIRIDE 2 MG TABLET PO SCH ×2 (09:09→20:32)
[2017-07-15] MEDS: PANTOPRAZOLE 40 MG TABLET PO SCH (09:09)
[2017-07-15] MEDS: FLUoxetine 20 MG CAPSULE PO SCH (09:09)
[2017-07-15] MEDS: DOCUSATE SODIUM 100 MG CAPSULE PO SCH ×2 (09:09→20:32)
[2017-07-15] MEDS: INSULIN GLARGINE 100 UNIT/ML SUBCUT SCH ×2 (09:13→16:38)
[2017-07-15] MEDS: LIDOCAINE 5% PATCH TRANSDERM SCH (09:17)
[2017-07-15] MEDS: LORazepam 2 MG/1 ML VIAL IV PRN ×3 (09:40→20:34)
[2017-07-15] MEDS: LEVOFLOXACIN INJ 500 MG in PREMIX 1 EACH IV SCH (09:43)
[2017-07-15 11:29] LABS: Basophils % 0.1 % (0.0-0.8); Hematocrit 28.1 VOL% (35.7-47.0); Hemoglobin 9.1 GM/DL (12.0-16.0); Immature Granulocytes % 0.7 %; Immature Granulocytes Absolute 0.07 #; Lymphocytes # 0.8 10*3/uL (1.4-4.0); Lymphocytes % 8.4 % (21.3-54.2); Mean Corpuscular HGB Conc 32.4 GM/DL (32-36); Mean Corpuscular Hemoglobin 30 PG (27-34); Mean Corpuscular Volume 92.1 FL (87-102); Monocytes # 0.5 10*3/uL (0.11-0.8); Neutrophils # 8.5 10*3/uL (1.4-7.4); Neutrophils % 85.8 % (38.7-73.9); Platelet Count 182 T/CUMM (130-400); Red Blood Count 3.05 MC/CUMM (3.8-5.5); Red Cell Distribution Width 16.4 % (9.3-17.3); White Blood Count 9.9 T/CUMM (4-12)
--- NOTE | 2017-07-15 11:46 | Pain Management Consult Note ---
Assessment and Plan (1) Chronic back pain Status: Chronic Assessment and plan: She has lubar spondylosis ans disc collapse DDD with a chronic L4 fx by xrays, obese and dibilitated but pneumonia inproving with no fever and normal WBC. Past issues with opioid dependency, violated CSA with Dr. Berrios in the past, less of an issue now that she receives oxycodone tid from NH staff. Concurrent use of benzo's worrisome and may want to consider weaning. Exam LBP center/left , no radicular, nor any hip or knee pain, GTB negative. Offered BREANA tomorrow and PT would be helpful when lungs stable. Current Visit: Yes Qualifiers: Back pain location: low back pain History of Present Illness Chief complaint: LBP History of present illness: Ms. Monk is a 67 year old female with chronic LBP new to me but seen by Dr. Berrios in the past and Dr. Ordonez at [place]. She has been in a NH for a year and ambulates with a walker, no current leg pain but has had in the past. Biltaeral TKA stable and no hip pain. Home Medications Medication Instructions Recorded Confirmed Type Glimepiride 2 mg PO BID 03/28/15 07/13/17 History Pantoprazole Sodium 40 mg PO DAILY 07/29/15 07/13/17 History metFORMIN [Glucophage] 1,000 mg PO BID 07/29/15 07/13/17 History FLUoxetine [PROzac] 60 mg PO DAILY 10/30/15 07/13/17 History Ferrous Sulfate 325 mg PO BID 05/02/16 07/13/17 History Levothyroxine Tab [Synthroid Tab] 0.05 mg PO DAILY 05/02/16 07/13/17 History Albuterol/Ipratropium Neb [Duoneb] 3 mg RESP TX Q8HR PRN 02/06/17 07/13/17 History Fluticasone/Salmeterol 250-50 1 puff INH BID 02/06/17 07/13/17 History [Advair 250-50] Folic Acid Tab 1 mg PO DAILY 02/06/17 07/13/17 History Lisinopril 20 mg PO DAILY 02/06/17 07/13/17 History Meloxicam 7.5 mg PO BID 02/06/17 07/13/17 History Methotrexate Tab 6 tablet PO TU 02/06/17 07/13/17 History Multivitamin [Multivitamins] 1 each PO QAM 02/06/17 07/13/17 History Pregabalin [Lyrica] 150 mg PO BID 02/06/17 07/13/17 History Trazodone HCl 100 mg PO BEDTIME 02/06/17 07/13/17 History clonazePAM TAB [KlonoPIN] 0.25 mg PO TID 02/06/17 07/13/17 History sulfaSALAzine [Azulfidine] 500 mg PO BID 02/06/17 07/13/17 History predniSONE TAB [PredniSONE] 5 mg PO DAILY 02/07/17 07/13/17 History Acetaminophen Tab [Tylenol Tab] 1,000 mg PO Q6H PRN 07/13/17 07/13/17 History Cetirizine Tab [ZyrTEC Tab] 10 mg PO DAILY 07/13/17 07/13/17 History Cyanocobalamin Inj [Vitamin B12 1,000 mcg IM Q30D 07/13/17 07/13/17 History Inj] Magnesium Hydroxide Susp [Milk of 30 ml PO Q4H PRN 07/13/17 07/13/17 History Magnesia] Melatonin 5 mg PO BEDTIME 07/13/17 07/13/17 History Oxycodone HCl/Acetaminophen 1 each PO TID 07/13/17 07/13/17 History [Percocet 10-325 mg Tablet] Phenol 1.4% Throat [place] 2 - 3 spray PO Q4H PRN 07/13/17 07/13/17 History [Chloraseptic [place]] Rosuvastatin [Crestor] 10 mg PO BEDTIME 07/13/17 07/13/17 History guaiFENesin/DM LIQUID [Robitussin 10 ml PO Q4H PRN 07/13/17 07/13/17 History Dm] Allergies Allergy/AdvReac Type Severity Reaction Status Date / Time Penicillins Allergy Severe RASH Verified 07/13/17 07:33 Medical,Surgical,& Family Hx - Medical History Cardio: History of: Hypertension, Cardiovascular Problems Psychological: History of: Anxiety Disorders, Depression, Psychiatric/Substance Abuse Tx No history of: ADHD, Behavior Problems, Bipolar Disorder, Previous Suicide Attempt, Schizophrenia, Violent Behavior, Psychiatric Problems Neurology: History of: Peripheral Neuropathy, Vertigo HEENT: History of: Glaucoma Endocrine: History of: Diabetes Mellitus (NIDDM), Dyslipidemia, Thyroid Disorder (HYPOTHRIODISM), Endocrine Problems (diabetic neuropathy) No history of: Diabetes Mellitus (IDDM) Rheumatology: History of;: Rheumatoid Arthritis, Rheumatological Problems No history of;: Gout Respiratory: History of: COPD, Respiratory Problems Genitourinary: History of: Recurring Urinary Tract Infections Gastrointestinal: History of: Diverticulitis/ Diverticulosis, GERD, Gastrointestinal Bleed, Pancreatitis (YEARS AGO), Polyps, GI Problems Comment Only: Hemorrhoids (HEMORRHIODS REMOVED 15 YEARS AGO) Musculoskeletal: History of: Back/Neck Problems, Herniated Disk, Osteoporosis Comment Only: Musculoskeletal Problems (COMPRESSION FRACTURE 1 YEAR) Hematology: History of: Clotting Problems (LEFT LEG 1979) Reproductive: History of: Abnormal Pap Smear (40 years ago) - Surgical History Neurologic Surgeries: Patient denies: Neurologic Surgery Abdominal Surgeries: Surgical HX of: Abdominal Surgery (polyps removed 1994), EGD (1989), Hernia Repair (1989) Reproductive Surgeries: Surgical HX of;: Section (1981), Tubal Ligation Orthopedic Surgeries: Surgical HX of;: Orthopedic Surgery, Total Knee Replacement (3 BILATERAL KNEE REPLACEMENT / LAST ONE 5 YEARS AGO) - Family History Family History: Reports;: Family Cancer (colon cancer (mom)), Family Diabetes ( mom), Family Heart Disease (mom, dad), Family Hypertension (mom, dad), Family Psychiatric Problems (daughter) - Social History Smoking Status: Never smoker Frequency of Alcohol Use: None Type of Drug Use: None Exam - Constitutional Vitals: Period Temp Pulse Resp BP Sys/Elise Pulse Ox Last 24 Hr 97.5 F-98.0 F 67-102 16-22 109-145/63-75 92-100 Results - Labs CBC & BMP: 07/15/17 11:18 07/14/17 04:29
[2017-07-15 11:54] LABS: Calcium 8.3 MG/DL (8.5-10.1); Osmolality,Calculated 280.7 MOS/KG (273-304); Potassium 4.7 MMOL/L (3.5-5.1)
--- NOTE | 2017-07-15 13:05 | Sleep Medicine Consult ---
Assessment and Plan (1) Unspecified sleep apnea Status: Acute Assessment and plan: Her symptoms certainly are concerning for sleep apnea and I do agree with need for sleep evaluation. Right now she is being treated with O2 for pneumonia and she is not a good candidate for home sleep testing. We will follow-up her hospital course and proceed with HST when improved or set up outpatient polysomnography. Thank you for this consult. Current Visit: Yes (2) Hypertension Status: Chronic Assessment and plan: The prevalence rate for obstructive sleep apnea patients with hypertension is 35 %. That rate can be as high as 80% in patients who require 4 or more medications for blood pressure control. Current Visit: Yes Qualifiers: Hypertension type: essential hypertension Qualified Code(s): I10 - Essential (primary) hypertension (3) Diabetes Status: Chronic Assessment and plan: The prevalence rate for obstructive sleep apnea in patients with type 2 diabetes can be as high as 86%. Those patients with moderate to severe obstructive sleep apnea are at a greater risk for diabetic nephropathy and neuropathy. Compliance with CPAP therapy for these patients can lead to improvement in glycemic control and improvement in insulin sensitivity. Current Visit: Yes Qualifiers: Diabetes mellitus type: type 2 Diabetes mellitus complication status: without complication Diabetes mellitus group home insulin use: without group home use Qualified Code(s): E11.9 - Type 2 diabetes mellitus without complications History of Present Illness Chief complaint: Sleep apnea History of present illness: Ms. Monk is a 67 year old female admitted with pneumonia and hypoxia. She is a [facility] resident. She has multiple health problems and during the course of her evaluation, it was noted that she had a stop bang score of 6. She has difficulty initiating and maintaining sleep. She usually gets in the bed by 630 and takes a trazodone to help her sleep. She may not fall asleep for a few hours. When she gets to sleep, she has a difficult time staying asleep. She will awaken 4-5 times a night to urinate. She does snore loudly and will awaken from sleep short of breath. She is never been told that she stops breathing during her sleep. She is not bothered by daytime fatigue and sleepiness. She does not nap. She has never had previous sleep evaluation. Home Medications Medication Instructions Recorded Confirmed Type Glimepiride 2 mg PO BID 03/28/15 07/13/17 History Pantoprazole Sodium 40 mg PO DAILY 07/29/15 07/13/17 History metFORMIN [Glucophage] 1,000 mg PO BID 07/29/15 07/13/17 History FLUoxetine [PROzac] 60 mg PO DAILY 10/30/15 07/13/17 History Ferrous Sulfate 325 mg PO BID 05/02/16 07/13/17 History Levothyroxine Tab [Synthroid Tab] 0.05 mg PO DAILY 05/02/16 07/13/17 History Albuterol/Ipratropium Neb [Duoneb] 3 mg RESP TX Q8HR PRN 02/06/17 07/13/17 History Fluticasone/Salmeterol 250-50 1 puff INH BID 02/06/17 07/13/17 History [Advair 250-50] Folic Acid Tab 1 mg PO DAILY 02/06/17 07/13/17 History Lisinopril 20 mg PO DAILY 02/06/17 07/13/17 History Meloxicam 7.5 mg PO BID 02/06/17 07/13/17 History Methotrexate Tab 6 tablet PO TU 02/06/17 07/13/17 History Multivitamin [Multivitamins] 1 each PO QAM 02/06/17 07/13/17 History Pregabalin [Lyrica] 150 mg PO BID 02/06/17 07/13/17 History Trazodone HCl 100 mg PO BEDTIME 02/06/17 07/13/17 History clonazePAM TAB [KlonoPIN] 0.25 mg PO TID 02/06/17 07/13/17 History sulfaSALAzine [Azulfidine] 500 mg PO BID 02/06/17 07/13/17 History predniSONE TAB [PredniSONE] 5 mg PO DAILY 02/07/17 07/13/17 History Acetaminophen Tab [Tylenol Tab] 1,000 mg PO Q6H PRN 07/13/17 07/13/17 History Cetirizine Tab [ZyrTEC Tab] 10 mg PO DAILY 07/13/17 07/13/17 History Cyanocobalamin Inj [Vitamin B12 1,000 mcg IM Q30D 07/13/17 07/13/17 History Inj] Magnesium Hydroxide Susp [Milk of 30 ml PO Q4H PRN 07/13/17 07/13/17 History Magnesia] Melatonin 5 mg PO BEDTIME 07/13/17 07/13/17 History Oxycodone HCl/Acetaminophen 1 each PO TID 07/13/17 07/13/17 History [Percocet 10-325 mg Tablet] Phenol 1.4% Throat [place] 2 - 3 spray PO Q4H PRN 07/13/17 07/13/17 History [Chloraseptic [place]] Rosuvastatin [Crestor] 10 mg PO BEDTIME 07/13/17 07/13/17 History guaiFENesin/DM LIQUID [Robitussin 10 ml PO Q4H PRN 07/13/17 07/13/17 History Dm] Allergies Allergy/AdvReac Type Severity Reaction Status Date / Time Penicillins Allergy Severe RASH Verified 07/13/17 07:33 Review of systems: Otherwise unremarkable from a sleep medicine standpoint. Exam ([place]) H&P - Constitutional Vitals: Period Temp Pulse Resp BP Sys/Elise Pulse Ox Last 24 Hr 97.5 F-98.0 F 67-102 16-22 109-145/64-75 92-99 Exam: She is alert and responsive in no acute distress. Pupils equal round reactive to light and accommodation. Extraocular movements intact. Oropharynx with a class III Mallampati exam. Neck is supple without adenopathy or thyromegaly. No supraclavicular adenopathy is noted. Chest with symmetrical breath sounds without focal wheeze, rhonchi, or rales. Cardiac exam reveals regular rhythm without murmur or gallop. Abdomen soft nontender without palpable hepatosplenomegaly or mass. Extremities are without clubbing, cyanosis, or edema. Neurologically, she is grossly intact. She moves all extremities with good strength. Medical,Surgical,& Family Hx - Medical History Cardio: History of: Hypertension, Cardiovascular Problems Psychological: History of: Anxiety Disorders, Depression, Psychiatric/Substance Abuse Tx No history of: ADHD, Behavior Problems, Bipolar Disorder, Previous Suicide Attempt, Schizophrenia, Violent Behavior, Psychiatric Problems Neurology: History of: Peripheral Neuropathy, Vertigo HEENT: History of: Glaucoma Endocrine: History of: Diabetes Mellitus (NIDDM), Dyslipidemia, Thyroid Disorder (HYPOTHRIODISM), Endocrine Problems (diabetic neuropathy) No history of: Diabetes Mellitus (IDDM) Rheumatology: History of;: Rheumatoid Arthritis, Rheumatological Problems No history of;: Gout Respiratory: History of: COPD, Respiratory Problems Genitourinary: History of: Recurring Urinary Tract Infections Gastrointestinal: History of: Diverticulitis/ Diverticulosis, GERD, Gastrointestinal Bleed, Pancreatitis (YEARS AGO), Polyps, GI Problems Comment Only: Hemorrhoids (HEMORRHIODS REMOVED 15 YEARS AGO) Musculoskeletal: History of: Back/Neck Problems, Herniated Disk, Osteoporosis Comment Only: Musculoskeletal Problems (COMPRESSION FRACTURE 1 YEAR) Hematology: History of: Clotting Problems (LEFT LEG 1979) Reproductive: History of: Abnormal Pap Smear (40 years ago) - Surgical History Neurologic Surgeries: Patient denies: Neurologic Surgery Abdominal Surgeries: Surgical HX of: Abdominal Surgery (polyps removed 1994), EGD (1989), Hernia Repair (1989) Reproductive Surgeries: Surgical HX of;: Section (1981), Tubal Ligation Orthopedic Surgeries: Surgical HX of;: Orthopedic Surgery, Total Knee Replacement (3 BILATERAL KNEE REPLACEMENT / LAST ONE 5 YEARS AGO) - Family History Family History: Reports;: Family Cancer (colon cancer (mom)), Family Diabetes ( mom), Family Heart Disease (mom, dad), Family Hypertension (mom, dad), Family Psychiatric Problems (daughter) - Social History Smoking Status: Never smoker Frequency of Alcohol Use: None Type of Drug Use: None Results - Labs CBC & BMP: 07/15/17 11:18 07/15/17 11:19 Lab Results: I have reviewed the past 24 hour labs Labs: TSH not done with admission labs. Recommend exclusion of hypothyroidism if has not been done recently.
[2017-07-15] MEDS: methylPREDNISolone SOD SUC 40 MG/1 ML VIAL IV SCH ×3 (13:30→23:07)
[2017-07-15] MEDS ORDERED: FUROSEMIDE 40 MG/4 ML VIAL IV ONE (16:58)
--- NOTE | 2017-07-15 17:30 | Internal Med Progress Note ---
Assessment and Plan (1) Anxiety and depression Status: Chronic Current Visit: Yes (2) LLL pneumonia Status: Acute Current Visit: Yes (3) COPD (chronic obstructive pulmonary disease) Status: Chronic Current Visit: Yes Qualifiers: COPD type: COPD with acute exacerbation Qualified Code(s): J44.1 - Chronic obstructive pulmonary disease with (acute) exacerbation (4) Chronic back pain Status: Chronic Current Visit: Yes Qualifiers: Back pain location: low back pain (5) Debility Status: Chronic Current Visit: Yes (6) Diabetes Status: Chronic Current Visit: Yes Qualifiers: Diabetes mellitus type: type 2 Diabetes mellitus complication status: without complication 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 Monk is a 67 year old female patient who is a resident of [facility]. She has history of COPD, allergic rhinitis, HTN, DM, OA and chronic pain followed by [facility] management, dementia and anxiety, who presented to ER with hypoxia, URI symptoms and admitted for pneumonia. She has worsening dementia and was placed in group home about one year ago, because family could no longer care for her at home. She has been on benzodiazepine and opiates for years and has dependency. Have been attempting to cut back at group home, but difficult, because patient is frequently asking for pain management, and knows when she has her "pills". Dr. Au has been consulted to see her. Unclear whether she is candidate for injections or has had them in the past. Should be in group home records. Will ask for those. She reports not feeling well today, Saturday, Jul 14, and will ask Dr. Au to see her to help with pain management. She has dependency on opiates and she expresses concern for opiates more than the pneumonia she's being treated for. Saturday, Jul 15: She reports not feeling much better today. Adjusting meds and consulting Dr. Elliott Lacy to evaluate for possible mucus plugs. Have asked Dr. Barth to evaluate for suspected LARA. Also, glucose levels need to be addressed; adjusting insulin. Exam (Progress Note) - Constitutional Vitals: Period Temp Pulse Resp BP Sys/Elise Pulse Ox Last 24 Hr 97.5 F-98.2 F 67-102 17-22 115-145/64-78 92-99 General appearance: no acute distress, other (ill-appearing) - Respiratory Respiratory exam: Present: prolonged expiratory phase, rhonchi (scattered rhonchi) - Cardiovascular Cardiovascular exam: Present: regular rate and rhythm - GI/Abdominal GI/Abdominal exam: Present: soft. Absent: tenderness - Extremities Exam Extremities exam: Absent: edema - Neurological Exam Neurological exam: Present: alert - Psychiatric Psychiatric exam: Present: normal mood - Skin Skin exam: Present: warm, dry Results - Labs CBC & BMP: 07/15/17 11:18 07/15/17 11:19
[2017-07-15] MEDS: traZODone 50 MG TABLET PO SCH (20:32)
[2017-07-15] MEDS: MELATONIN 3 MG TABLET PO SCH (20:32)
[2017-07-16] MEDS: ALBUTEROL/IPRATROPIUM 3 ML NEB RESP TX SCH ×5 (03:10→19:00)
[2017-07-16] MEDS: KETOROLAC 15 MG/1 ML VIAL IV SCH ×3 (05:26→21:57)
[2017-07-16] MEDS: methylPREDNISolone SOD SUC 40 MG/1 ML VIAL IV SCH ×4 (05:29→23:15)
[2017-07-16] MEDS: LEVOTHYROXINE 50 MCG TABLET PO SCH (06:13)
[2017-07-16 07:23] LABS: Basophils % 0.1 % (0.0-0.8); Hemoglobin 10.7 GM/DL (12.0-16.0); Immature Granulocytes % 1.5 %; Immature Granulocytes Absolute 0.21 #; Lymphocytes # 0.8 10*3/uL (1.4-4.0); Mean Corpuscular HGB Conc 32.4 GM/DL (32-36); Mean Corpuscular Hemoglobin 30 PG (27-34); Mean Corpuscular Volume 91.2 FL (87-102); Monocytes # 0.5 10*3/uL (0.11-0.8); Monocytes % 3.4 % (1.7-12.7); Neutrophils # 12.4 10*3/uL (1.4-7.4); Red Blood Count 3.62 MC/CUMM (3.8-5.5); Red Cell Distribution Width 16.3 % (9.3-17.3)
[2017-07-16] MEDS: BUDESONIDE 0.25 MG/2 ML NEB RESP TX SCH ×2 (07:27→19:00)
[2017-07-16] MEDS: oxyCODONE/ACETAMINOPHEN 5-325 MG TABLET PO PRN ×3 (07:33→23:15)
[2017-07-16 07:39] LABS: White Blood Count 13.9 T/CUMM (4-12)
[2017-07-16 07:40] LABS: Platelet Count 246 T/CUMM (130-400)
[2017-07-16 08:01] LABS: Osmolality,Calculated 277.1 MOS/KG (273-304); Potassium 4.7 MMOL/L (3.5-5.1)
[2017-07-16 08:11] LABS: 25 Hydroxy Vitamin D Total 24.1 NG/ML; Folate > 24.0 NG/ML (5.4-24.0); Vitamin B12 331 PG/ML (211-911)
[2017-07-16] MEDS ORDERED: LORazepam 1 MG TABLET PO ONE (08:44)
[2017-07-16] MEDS ORDERED: FAMOTIDINE 20 MG TABLET PO ONE (08:44)
--- NOTE | 2017-07-16 08:55 | EKG Report ---
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
[2017-07-16] MEDS: LORazepam 2 MG/1 ML VIAL IV PRN ×3 (09:01→20:36)
[2017-07-16] MEDS: LEVOFLOXACIN INJ 500 MG in PREMIX 1 EACH IV SCH (09:03)
[2017-07-16] MEDS ORDERED: BETAMETH SODIUM PHOS/ACETATE 30 MG/5 ML VIAL ONE (10:56)
[2017-07-16] MEDS ORDERED: PROPOFOL 200 MG/20 ML VIAL IV ONE (11:10)
[2017-07-16] MEDS ORDERED: LIDOCAINE 2% 5 ML VIAL ONE (11:10)
[2017-07-16] MEDS ORDERED: LACTATED RINGERS 1,000 ML IV ONE (11:40)
[2017-07-16] MEDS ORDERED: fentaNYL 100 MCG/2 ML VIAL ONE (11:40)
[2017-07-16] MEDS ORDERED: MIDAZOLAM 2 MG/2 ML VIAL ONE (11:40)
--- NOTE | 2017-07-16 11:45 | Anesthesia Post-Op ---
Anesthesia Post OP - Post Ansesthetic Evaluation Patient seen in post op: Yes Resp: within normal limits CV: within normal limits Mental: within normal limits Temp: within normal limits [id number]: within normal limits Nausea and Vomiting: within normal limits Pain: within normal limits Other:: no change from preop
[2017-07-16] MEDS: INSULIN REGULAR 100 UNIT/ML SUBCUT SCH ×3 (13:17→20:35)
[2017-07-16] MEDS: GLIMEPIRIDE 2 MG TABLET PO SCH ×2 (13:18→20:32)
[2017-07-16] MEDS: FERROUS SULFATE 325 MG TABLET PO SCH ×2 (13:19→20:32)
[2017-07-16] MEDS: INSULIN GLARGINE 100 UNIT/ML SUBCUT SCH ×2 (13:19→16:20)
[2017-07-16] MEDS: metFORMIN 500 MG TABLET PO SCH ×2 (13:19→20:32)
[2017-07-16] MEDS: DOCUSATE SODIUM 100 MG CAPSULE PO SCH ×2 (13:19→20:32)
[2017-07-16] MEDS: sulfaSALAzine 500 MG TABLET PO SCH ×2 (13:19→20:32)
[2017-07-16] MEDS: PANTOPRAZOLE 40 MG TABLET PO SCH (13:20)
[2017-07-16] MEDS: GABAPENTIN 100 MG CAPSULE PO SCH ×3 (13:20→20:33)
[2017-07-16] MEDS: LIDOCAINE 5% PATCH TRANSDERM SCH (13:20)
[2017-07-16] MEDS: FLUoxetine 20 MG CAPSULE PO SCH (13:20)
[2017-07-16] MEDS: CETIRIZINE 10 MG TABLET PO SCH (13:21)
[2017-07-16] MEDS: FUROSEMIDE 40 MG/4 ML VIAL IM SCH (13:28)
--- NOTE | 2017-07-16 15:23 | Pulmonology Consult Note ---
Assessment and Plan (1) Obesity Status: Acute Assessment and plan: The patient is quite large and deconditioned and this is causing much of her shortness of breath. Current Visit: Yes (2) Pneumonia Status: Acute Assessment and plan: Clinically the patient is doing fairly well and does not have much symptoms of pneumonia. Chest x-ray showed some very minimal atelectasis in the left base. She mainly has a large hiatal hernia. Will repeat her chest x-ray. She is getting respiratory therapy. Current Visit: No (3) Rheumatoid arthritis Status: Acute Assessment and plan: She takes low-dose prednisone and methotrexate. Current Visit: No (4) Diabetes Status: Chronic Assessment and plan: Her glucose is 138 today. Current Visit: Yes Qualifiers: Diabetes mellitus type: type 2 Diabetes mellitus complication status: without complication Diabetes mellitus phys asst insulin use: without phys asst use Qualified Code(s): E11.9 - Type 2 diabetes mellitus without complications (5) Hypertension Status: Chronic Assessment and plan: She is taking medications for high blood pressure. Current Visit: Yes Qualifiers: Hypertension type: essential hypertension Qualified Code(s): I10 - Essential (primary) hypertension (6) Neuropathy Status: Acute Assessment and plan: She has chronic pain problems and can not ambulate very well. Current Visit: No (7) Generalized anxiety disorder Status: Acute Assessment and plan: She does take a lot of medications. Current Visit: No (8) Debility Status: Chronic Current Visit: Yes (9) Hiatal hernia Status: Acute Assessment and plan: She does have a large hiatal hernia and will need to continue with antireflux measures. Current Visit: Yes History of Present Illness Chief complaint: Back pain History of present illness: Ms. Monk is a 67 year old white female that is a resident [facility]. She has been there for over a year. She has a history of having a chronic neuropathy and back pain. She cannot get around very well. She has never really had any significant lung problems. She does not smoke. She says at the half-way she does not require breathing treatments. She has used Advair in the past. She was seen in because of some chest congestion and coughing this time. She was told she might have left lower lobe pneumonia. She says she is feeling much better today. She went for a spinal block today. She says she is not coughing or wheezing as much as she was. She is not feeling very short of breath at all. Her major complaints are her back pain. Home Medications Medication Instructions Recorded Confirmed Type Glimepiride 2 mg PO BID 03/28/15 07/13/17 History Pantoprazole Sodium 40 mg PO DAILY 07/29/15 07/13/17 History metFORMIN [Glucophage] 1,000 mg PO BID 07/29/15 07/13/17 History FLUoxetine [PROzac] 60 mg PO DAILY 10/30/15 07/13/17 History Ferrous Sulfate 325 mg PO BID 05/02/16 07/13/17 History Levothyroxine Tab [Synthroid Tab] 0.05 mg PO DAILY 05/02/16 07/13/17 History Albuterol/Ipratropium Neb [Duoneb] 3 mg RESP TX Q8HR PRN 02/06/17 07/13/17 History Fluticasone/Salmeterol 250-50 1 puff INH BID 02/06/17 07/13/17 History [Advair 250-50] Folic Acid Tab 1 mg PO DAILY 02/06/17 07/13/17 History Lisinopril 20 mg PO DAILY 02/06/17 07/13/17 History Meloxicam 7.5 mg PO BID 02/06/17 07/13/17 History Methotrexate Tab 6 tablet PO TU 02/06/17 07/13/17 History Multivitamin [Multivitamins] 1 each PO QAM 02/06/17 07/13/17 History Pregabalin [Lyrica] 150 mg PO BID 02/06/17 07/13/17 History Trazodone HCl 100 mg PO BEDTIME 02/06/17 07/13/17 History clonazePAM TAB [KlonoPIN] 0.25 mg PO TID 02/06/17 07/13/17 History sulfaSALAzine [Azulfidine] 500 mg PO BID 02/06/17 07/13/17 History predniSONE TAB [PredniSONE] 5 mg PO DAILY 02/07/17 07/13/17 History Acetaminophen Tab [Tylenol Tab] 1,000 mg PO Q6H PRN 07/13/17 07/13/17 History Cetirizine Tab [ZyrTEC Tab] 10 mg PO DAILY 07/13/17 07/13/17 History Cyanocobalamin Inj [Vitamin B12 1,000 mcg IM Q30D 07/13/17 07/13/17 History Inj] Magnesium Hydroxide Susp [Milk of 30 ml PO Q4H PRN 07/13/17 07/13/17 History Magnesia] Melatonin 5 mg PO BEDTIME 07/13/17 07/13/17 History Oxycodone HCl/Acetaminophen 1 each PO TID 07/13/17 07/13/17 History [Percocet 10-325 mg Tablet] Phenol 1.4% Throat Humble 2 - 3 spray PO Q4H PRN 07/13/17 07/13/17 History [Chloraseptic Humble] Rosuvastatin [Crestor] 10 mg PO BEDTIME 07/13/17 07/13/17 History guaiFENesin/DM LIQUID [Robitussin 10 ml PO Q4H PRN 07/13/17 07/13/17 History Dm] Allergies Allergy/AdvReac Type Severity Reaction Status Date / Time Penicillins Allergy Severe RASH Verified 07/13/17 07:33 - Constitutional Constitutional: Present: fatigue, malaise, weight gain. Absent: chills, fever(s ) - EENT Eyes: Absent: loss of vision Ears: Absent: decreased hearing Nose, mouth and throat: Present: sore throat. Absent: headache(s), sinus pressure - Cardiovascular Cardiovascular: Present: dyspnea, orthopnea. Absent: chest pain at rest, edema - Respiratory Respiratory: Present: cough, dyspnea, wheezing. Absent: pain on inspiration, change in phlegm color - Gastrointestinal Gastrointestinal: Present: heartburn. Absent: abdominal pain, change in bowel habits, dysphagia, nausea, vomiting - Genitourinary Genitourinary: Absent: dysuria, hematuria, urinary frequency - Musculoskeletal Musculoskeletal: Present: arthralgias, myalgias - Neurological Neurological: Present: memory loss. Absent: abnormal speech, confusion, focal weakness - Psychiatric Psychiatric: Present: anxiety Exam (Pulmonay) H&P - Constitutional Vitals: Period Temp Pulse Resp BP Sys/Elise Pulse Ox Last 24 Hr 97.3 F-99.9 F 74-96 16-24 126-153/61-84 92-99 General appearance: no acute distress, over weight - Head Head exam: Present: normal inspection, normocephalic - Eye Eye exam: Present: EOMI. Absent: scleral icterus Pupils: Present: FRANCESCA - ENT ENT exam: Present: normal exam - Neck Neck exam: Present: normal inspection. Absent: lymphadenopathy, thyromegaly - Respiratory Respiratory exam: Present: decreased breath sounds (She has slight decreased breath sounds in the bases because of her size.), rhonchi. Absent: wheezes - Cardiovascular Cardiovascular exam: Present: regular rate and rhythm. Absent: gallop, systolic murmur - GI/Abdominal GI/Abdominal exam: Present: normal bowel sounds, soft. Absent: distended, organomegaly, tenderness - Extremities Exam Extremities exam: Absent: calf tenderness, edema - Back Exam Back exam: Absent: CVA tenderness (L), CVA tenderness (R) - Neurological Exam Neurological exam: Present: alert, oriented X3, CN II-XII intact - Psychiatric Psychiatric exam: Present: anxious - Skin Skin exam: Present: warm, dry Medical,Surgical,& Family Hx - Medical History Cardio: History of: Hypertension, Cardiovascular Problems Psychological: History of: Anxiety Disorders, Depression, Psychiatric/Substance Abuse Tx No history of: ADHD, Behavior Problems, Bipolar Disorder, Previous Suicide Attempt, Schizophrenia, Violent Behavior, Psychiatric Problems Neurology: History of: Peripheral Neuropathy, Vertigo HEENT: History of: Glaucoma Endocrine: History of: Diabetes Mellitus (NIDDM), Dyslipidemia, Thyroid Disorder (HYPOTHRIODISM), Endocrine Problems (diabetic neuropathy) No history of: Diabetes Mellitus (IDDM) Rheumatology: History of;: Rheumatoid Arthritis, Rheumatological Problems No history of;: Gout Respiratory: History of: COPD, Respiratory Problems Genitourinary: History of: Recurring Urinary Tract Infections Gastrointestinal: History of: Diverticulitis/ Diverticulosis, GERD, Gastrointestinal Bleed, Pancreatitis (YEARS AGO), Polyps, GI Problems Comment Only: Hemorrhoids (HEMORRHIODS REMOVED 15 YEARS AGO) Musculoskeletal: History of: Back/Neck Problems, Herniated Disk, Osteoporosis Comment Only: Musculoskeletal Problems (COMPRESSION FRACTURE 1 YEAR) Hematology: History of: Clotting Problems (LEFT LEG 1979) Reproductive: History of: Abnormal Pap Smear (40 years ago) - Surgical History Neurologic Surgeries: Patient denies: Neurologic Surgery Abdominal Surgeries: Surgical HX of: Abdominal Surgery (polyps removed 1994), EGD (1989), Hernia Repair (1989) Reproductive Surgeries: Surgical HX of;: Section (1981), Tubal Ligation Orthopedic Surgeries: Surgical HX of;: Orthopedic Surgery, Total Knee Replacement (3 BILATERAL KNEE REPLACEMENT / LAST ONE 5 YEARS AGO) - Family History Family History: Reports;: Family Cancer (colon cancer (mom)), Family Diabetes ( mom), Family Heart Disease (mom, dad), Family Hypertension (mom, dad), Family Psychiatric Problems (daughter) - Social History Smoking Status: Never smoker Frequency of Alcohol Use: None Type of Drug Use: None Results - Labs CBC & BMP: 07/16/17 07:08 07/16/17 07:08 - Diagnostic Findings Procedure: Chest x-ray: image reviewed by me, report reviewed by me (Chest x- ray shows a fairly large hiatal hernia. There was only minimal infiltrate present.)
[2017-07-16] MEDS: traZODone 50 MG TABLET PO SCH (20:32)
[2017-07-16] MEDS: MELATONIN 3 MG TABLET PO SCH (20:33)
--- NOTE | 2017-07-16 23:24 | Internal Med Progress Note ---
Assessment and Plan (1) Anxiety and depression Status: Chronic Current Visit: Yes (2) LLL pneumonia Status: Acute Current Visit: Yes (3) COPD (chronic obstructive pulmonary disease) Status: Chronic Current Visit: Yes Qualifiers: COPD type: COPD with acute exacerbation Qualified Code(s): J44.1 - Chronic obstructive pulmonary disease with (acute) exacerbation (4) Chronic back pain Status: Chronic Current Visit: Yes Qualifiers: Back pain location: low back pain (5) Debility Status: Chronic Current Visit: Yes (6) Diabetes Status: Chronic Current Visit: Yes Qualifiers: Diabetes mellitus type: type 2 Diabetes mellitus complication status: without complication Diabetes mellitus intermediate card tender insulin use: without usp use Qualified Code(s): E11.9 - Type 2 diabetes mellitus without complications (7) Hypertension Status: Chronic Current Visit: Yes Qualifiers: Hypertension type: essential hypertension Qualified Code(s): I10 - Essential (primary) hypertension Internal Medicine - PN: Subj Interval history: Ms. Monk is a 67 year old female patient who is a resident of [facility]. She has history of COPD, allergic rhinitis, HTN, DM, OA and chronic pain followed by [facility] management, dementia and anxiety, who presented to ER with hypoxia, URI symptoms and admitted for pneumonia. She has worsening dementia and was placed in shelter about one year ago, because family could no longer care for her at home. She has been on benzodiazepine and opiates for years and has dependency. Have been attempting to cut back at shelter, but difficult, because patient is frequently asking for pain management, and knows when she has her "pills". Dr. Au has been consulted to see her. Unclear whether she is candidate for injections or has had them in the past. Should be in shelter records. Will ask for those. She reports not feeling well today, Saturday, Jul 14, and will ask Dr. Au to see her to help with pain management. She has dependency on opiates and she expresses concern for opiates more than the pneumonia she's being treated for. Saturday, Jul 15: She reports not feeling much better today. Adjusting meds and consulting Dr. Elliott Lacy to evaluate for possible mucus plugs. Have asked Dr. Barth to evaluate for suspected LARA. Also, glucose levels need to be addressed; adjusting insulin. Jul 16: She reports doing better today. Continue current regimen. Exam (Progress Note) - Constitutional Vitals: Period Temp Pulse Resp BP Sys/Elise Pulse Ox Last 24 Hr 97.3 F-99.9 F 76-96 16-24 120-156/66-87 93-99 Exam: General appearance: no acute distress, other (ill-appearing) - Respiratory Respiratory exam: clear to auscultation - Cardiovascular Cardiovascular exam: Present: regular rate and rhythm - GI/Abdominal GI/Abdominal exam: Present: soft. Absent: tenderness - Extremities Exam Extremities exam: Absent: edema - Neurological Exam Neurological exam: Present: alert - Psychiatric Psychiatric exam: Present: normal mood - Skin Skin exam: Present: warm, dry Results - Labs CBC & BMP: 07/16/17 07:08 07/16/17 07:08
[2017-07-17] MEDS: ALBUTEROL/IPRATROPIUM 3 ML NEB RESP TX SCH ×6 (00:21→19:50)
[2017-07-17] MEDS: LORazepam 2 MG/1 ML VIAL IV PRN ×4 (03:02→21:45)
[2017-07-17] MEDS: LEVOTHYROXINE 50 MCG TABLET PO SCH (06:04)
[2017-07-17] MEDS: methylPREDNISolone SOD SUC 40 MG/1 ML VIAL IV SCH ×4 (06:04→17:23)
[2017-07-17] MEDS: KETOROLAC 15 MG/1 ML VIAL IV SCH ×3 (06:07→21:44)
[2017-07-17 06:33] LABS: Basophils % 0.1 % (0.0-0.8); Hematocrit 31.6 VOL% (35.7-47.0); Hemoglobin 10.5 GM/DL (12.0-16.0); Immature Granulocytes % 1.7 %; Immature Granulocytes Absolute 0.14 #; Lymphocytes # 0.6 10*3/uL (1.4-4.0); Lymphocytes % 7.6 % (21.3-54.2); Mean Corpuscular HGB Conc 33.2 GM/DL (32-36); Mean Corpuscular Hemoglobin 30 PG (27-34); Mean Platelet Volume 10.2 FL (9.6-12.0); Monocytes # 0.2 10*3/uL (0.11-0.8); Monocytes % 2.8 % (1.7-12.7); Neutrophils # 7.2 10*3/uL (1.4-7.4); Neutrophils % 87.8 % (38.7-73.9); Platelet Count 247 T/CUMM (130-400); Red Blood Count 3.51 MC/CUMM (3.8-5.5); Red Cell Distribution Width 16.2 % (9.3-17.3)
[2017-07-17 06:34] LABS: White Blood Count 8.2 T/CUMM (4-12)
[2017-07-17] MEDS: BUDESONIDE 0.25 MG/2 ML NEB RESP TX SCH ×2 (06:55→19:50)
[2017-07-17 07:02] LABS: Calcium 8.8 MG/DL (8.5-10.1); Osmolality,Calculated 281.2 MOS/KG (273-304); Potassium 4.6 MMOL/L (3.5-5.1)
--- NOTE | 2017-07-17 07:54 | XRay Report ---
Portable chest Exam date: 07/17/2017 4:00 AM Indication: Shortness of breath, cough Comparison: July 13, 2017 Findings: Cardiomediastinal contours are normal. Discoid atelectasis within the left lung base. Remainder of the lungs are clear. No acute osseous abnormalities. Visualized upper abdomen demonstrates no acute pathology. Impression: Left basilar discoid atelectasis PROCEDURE INTERPRETED AT [facility] DEPARTMENT OF RADIOLOGY Final Report Signed by: Florentin Begum
[2017-07-17] MEDS: INSULIN REGULAR 100 UNIT/ML SUBCUT SCH ×4 (09:25→21:46)
[2017-07-17] MEDS: INSULIN GLARGINE 100 UNIT/ML SUBCUT SCH ×2 (09:25→16:43)
[2017-07-17] MEDS: oxyCODONE/ACETAMINOPHEN 5-325 MG TABLET PO PRN ×2 (09:32→16:44)
[2017-07-17] MEDS: FERROUS SULFATE 325 MG TABLET PO SCH ×2 (09:33→21:40)
[2017-07-17] MEDS: sulfaSALAzine 500 MG TABLET PO SCH ×2 (09:33→21:41)
[2017-07-17] MEDS: PANTOPRAZOLE 40 MG TABLET PO SCH (09:33)
[2017-07-17] MEDS: metFORMIN 500 MG TABLET PO SCH ×2 (09:33→21:44)
[2017-07-17] MEDS: CETIRIZINE 10 MG TABLET PO SCH (09:33)
[2017-07-17] MEDS: FLUoxetine 20 MG CAPSULE PO SCH (09:33)
[2017-07-17] MEDS: DOCUSATE SODIUM 100 MG CAPSULE PO SCH ×2 (09:33→21:41)
[2017-07-17] MEDS: GABAPENTIN 100 MG CAPSULE PO SCH ×3 (09:33→21:48)
[2017-07-17] MEDS: GLIMEPIRIDE 2 MG TABLET PO SCH ×2 (09:33→21:41)
[2017-07-17] MEDS: LIDOCAINE 5% PATCH TRANSDERM SCH (09:34)
[2017-07-17] MEDS: LEVOFLOXACIN INJ 500 MG in PREMIX 1 EACH IV SCH (09:35)
[2017-07-17] MEDS: FUROSEMIDE 40 MG/4 ML VIAL IV SCH (09:38)
[2017-07-17] MEDS: FUROSEMIDE 40 MG/4 ML VIAL IM SCH (12:00)
--- NOTE | 2017-07-17 13:45 | Pulmonology Progress Note ---
Pulmonary - PN: Subj Interval history: Ms. Monk is a 67 year old white female that is a resident of a [facility]. She has been there for over a year. She has a history of having a chronic neuropathy and back pain. She cannot get around very well. She has never really had any significant lung problems. She does not smoke. [facility] at [facility] she does not require breathing treatments. She has used Advair in the past. She was seen in because of some chest congestion and coughing this time. She was told she might have left lower lobe pneumonia. She had a block on her back and says her pain is better. She says she is still coughing some today. She does have a bronchitic cough today. However she is breathing comfortably lying in bed. Her chest x-ray shows only minimal atelectasis left base. She looks like she is reasonably stable today. Exam (Progress Note) - Constitutional Vitals: Period Temp Pulse Resp BP Sys/Elise Pulse Ox Last 24 Hr 97.5 F-98.3 F 76-96 16-20 112-156/61-89 93-99 Exam: General appearance: no acute distress, over weight, she is lying flat in bed and seems to be comfortable. She does have a bronchitic cough. - Head Head exam: Present: normal inspection, normocephalic - Eye Eye exam: Present: EOMI. Absent: scleral icterus Pupils: Present: FRANCESCA - ENT ENT exam: Present: normal exam - Neck Neck exam: Present: normal inspection. Absent: lymphadenopathy, thyromegaly - Respiratory Respiratory exam: Present: decreased breath sounds (She has slight decreased breath sounds in the bases because of her size.), rhonchi. Absent: wheezes - Cardiovascular Cardiovascular exam: Present: regular rate and rhythm. Absent: gallop, systolic murmur - GI/Abdominal GI/Abdominal exam: Present: normal bowel sounds, soft. Absent: distended, organomegaly, tenderness - Extremities Exam Extremities exam: Absent: calf tenderness, edema, he can move her extremities okay. - Back Exam Back exam: Absent: CVA tenderness (L), CVA tenderness (R) - Neurological Exam Neurological exam: Present: alert, oriented X3, CN II-XII intact - Psychiatric Psychiatric exam: Present: anxious - Skin Skin exam: Present: warm, dry Results - Labs CBC & BMP: 07/17/17 05:05 07/17/17 05:05 - Diagnostic Findings Procedure: Chest x-ray: image reviewed by me, report reviewed by me (Chest x- ray shows large hiatal hernia and just minimal linear atelectasis in the left base.) Assessment and Plan (1) Obesity Status: Acute Assessment and plan: The patient is quite large and deconditioned and this is causing much of her shortness of breath. She does have a bronchitic cough. She may have a sleep study at some point in the future. Current Visit: Yes (2) Pneumonia Status: Acute Assessment and plan: Clinically the patient is doing fairly well and does not have much symptoms of pneumonia. Chest x-ray showed some very minimal atelectasis in the left base. She mainly has a large hiatal hernia. She seems to be relatively stable at present. Will hold on a bronchoscope unless her symptoms get worse. Current Visit: No (3) Rheumatoid arthritis Status: Acute Assessment and plan: She takes low-dose prednisone and methotrexate. Current Visit: No (4) Diabetes Status: Chronic Assessment and plan: Her glucose is 228 today. 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 Current Visit: Yes Qualifiers: Hypertension type: essential hypertension Qualified Code(s): I10 - Essential (primary) hypertension (6) Neuropathy Status: Acute Assessment and plan: She has chronic pain problems and can not ambulate very well. Current Visit: No (7) Generalized anxiety disorder Status: Acute Assessment and plan: She does take a lot of medications. She seems to be resting okay today. Current Visit: No (8) Debility Status: Chronic Assessment and plan: The patient does look somewhat chronically ill. I doubt she will do much activity in the future. Current Visit: Yes (9) Hiatal hernia Status: Acute Assessment and plan: She does have a large hiatal hernia and will need to continue with antireflux measures. Current Visit: Yes
--- NOTE | 2017-07-17 18:52 | Internal Med Progress Note ---
Assessment and Plan (1) Anxiety and depression Status: Chronic Current Visit: Yes (2) LLL pneumonia Status: Acute Current Visit: Yes (3) COPD (chronic obstructive pulmonary disease) Status: Chronic Current Visit: Yes Qualifiers: Qualified Code(s): J44.1 - Chronic obstructive pulmonary disease with (acute ) exacerbation (4) Chronic back pain Status: Chronic Current Visit: Yes (5) Debility Status: Chronic Current Visit: Yes (6) Diabetes Status: Chronic Current Visit: Yes Qualifiers: Qualified Code(s): E11.9 - Type 2 diabetes mellitus without complications (7) Hypertension Status: Chronic Current Visit: Yes Qualifiers: Qualified Code(s): I10 - Essential (primary) hypertension Internal Medicine - PN: Subj Interval history: Ms. Monk is a 67 year old female patient who is a resident of [facility]. She has history of COPD, allergic rhinitis, HTN, DM, OA and chronic pain followed by [place] pain management, dementia and anxiety, who presented to ER with hypoxia, URI symptoms and admitted for pneumonia. She has worsening dementia and was placed in longterm about one year ago, because family could no longer care for her at home. She has been on benzodiazepine and opiates for years and has dependency. Have been attempting to cut back at longterm, but difficult, because patient is frequently asking for pain management, and knows when she has her "pills". Dr. Au has been consulted to see her. Unclear whether she is candidate for injections or has had them in the past. Should be in longterm records. Will ask for those. She reports not feeling well today, Jul 14, and will ask Dr. Au to see her to help with pain management. She has dependency on opiates and she expresses concern for opiates more than the pneumonia she's being treated for. Jul 15: She reports not feeling much better today. Adjusting meds and consulting Dr. Elliott Lacy to evaluate for possible mucus plugs. Have asked Dr. Barth to evaluate for suspected LARA. Also, glucose levels need to be addressed; adjusting insulin. Jul 16: She reports doing better today. Continue current regimen. Jul 17: She is breathing better, but she expressed concern about an prior diagnosis of large hiatal hernia and would like that checked. She complains of intermittent upper abdominal pain. Will consult Dr. Mckinney. Exam (Progress Note) - Constitutional Vitals: Period Temp Pulse Resp BP Sys/Elise Pulse Ox Last 24 Hr 97.5 F-98.1 F 76-103 16-20 112-151/60-89 93-99 Exam: General appearance: no acute distress, other (ill-appearing) - Respiratory Respiratory exam: clear to auscultation - Cardiovascular Cardiovascular exam: Present: regular rate and rhythm - GI/Abdominal GI/Abdominal exam: Present: soft and nontender to light palpation - Extremities Exam Extremities exam: Absent: edema - Neurological Exam Neurological exam: Present: alert - Psychiatric Psychiatric exam: Present: normal mood - Skin Skin exam: Present: warm, dry Results - Labs CBC & BMP: 07/17/17 05:05 07/18/17 05:40
[2017-07-17] MEDS: MELATONIN 3 MG TABLET PO SCH (21:41)
[2017-07-17] MEDS: traZODone 50 MG TABLET PO SCH (21:41)
[2017-07-18] MEDS: ALBUTEROL/IPRATROPIUM 3 ML NEB RESP TX SCH ×8 (00:14→23:43)
[2017-07-18] MEDS: methylPREDNISolone SOD SUC 40 MG/1 ML VIAL IV SCH ×5 (00:25→17:00)
[2017-07-18] MEDS: LEVOTHYROXINE 50 MCG TABLET PO SCH (06:29)
[2017-07-18] MEDS: KETOROLAC 15 MG/1 ML VIAL IV SCH ×2 (06:30→13:29)
[2017-07-18 07:00] LABS: Potassium 4.7 MMOL/L (3.5-5.1)
[2017-07-18] MEDS: BUDESONIDE 0.25 MG/2 ML NEB RESP TX SCH ×3 (07:23→19:59)
[2017-07-18] MEDS: INSULIN GLARGINE 100 UNIT/ML SUBCUT SCH ×2 (08:28→16:10)
[2017-07-18] MEDS: INSULIN REGULAR 100 UNIT/ML SUBCUT SCH ×4 (08:28→22:20)
[2017-07-18] MEDS: metFORMIN 500 MG TABLET PO SCH ×2 (08:30→22:19)
[2017-07-18] MEDS: FLUoxetine 20 MG CAPSULE PO SCH (08:31)
[2017-07-18] MEDS: DOCUSATE SODIUM 100 MG CAPSULE PO SCH ×2 (08:31→22:19)
[2017-07-18] MEDS: CETIRIZINE 10 MG TABLET PO SCH (08:31)
[2017-07-18] MEDS: sulfaSALAzine 500 MG TABLET PO SCH ×2 (08:31→22:17)
[2017-07-18] MEDS: PANTOPRAZOLE 40 MG TABLET PO SCH (08:31)
[2017-07-18] MEDS: GABAPENTIN 100 MG CAPSULE PO SCH ×3 (08:31→22:18)
[2017-07-18] MEDS: GLIMEPIRIDE 2 MG TABLET PO SCH ×2 (08:31→22:18)
[2017-07-18] MEDS: oxyCODONE/ACETAMINOPHEN 5-325 MG TABLET PO PRN ×2 (08:32→22:19)
[2017-07-18] MEDS: LIDOCAINE 5% PATCH TRANSDERM SCH (08:32)
[2017-07-18] MEDS: FUROSEMIDE 40 MG/4 ML VIAL IV SCH (08:32)
[2017-07-18] MEDS: FERROUS SULFATE 325 MG TABLET PO SCH ×2 (08:33→22:17)
[2017-07-18] MEDS: LORazepam 2 MG/1 ML VIAL IV PRN ×3 (09:10→22:20)
[2017-07-18] MEDS: LEVOFLOXACIN INJ 500 MG in PREMIX 1 EACH IV SCH (09:11)
--- NOTE | 2017-07-18 09:27 | Gastrointestinal Consult Note ---
Assessment and Plan (1) Hiatal hernia Status: Acute Assessment and plan: 07/17-admitted with shortness of breath with questionable findings of pneumonia. Noted findings on chest x-ray of moderate size hiatal hernia with complaints of "gurgling" and occasional belching and bloating related to this. 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 No prior endoscopy since then. Plan an addendum to followed by Dr. Mckinney. Current Visit: Yes History of Present Illness Chief complaint: Hx of hiatal hernia History of present illness: Ms. Monk is a 67 year old female who was admitted to the hospital on 07/13 with onset of shortness of breath and hypoxia. Patient is a resident [facility] and is a fairly good historian. Information is obtained from patient interview as well as chart review. She has a prior history of COPD, hypertension, diabetes, and chronic pain which is managed at [facility] pain management. She also has a history of dementia as well as anxiety. Patient was admitted with findings of questionable pneumonia with findings of minimal atelectasis in the left lung base. She was also noted in her chest x-ray to have a moderate size hiatal hernia. Patient states that she has a history of this in 1990 she states that she had surgical intervention at that time for what she describes as a diaphragmatic herniation. She is unable to recall the exact specifics of the procedure however states that she has not had any problems with this until recently. Patient states that she has no pain with eating, however she has a constant "gurgling" in her abdomen that she states is very audible to others around her. She states that she does have some bloating and belching as well but denies any nausea or vomiting. She denies any dysphagia to pills solids or liquids. She is not complaining of any GERD or other dyspepsia symptoms. She denies any melena or hematochezia. She has not had any endoscopy since her surgery that she can recall. She has not followed regularly according to the patient by gastroenterology for this. She is denying any weight loss as well. Home Medications Medication Instructions Recorded Confirmed Type Glimepiride 2 mg PO BID 03/28/15 07/13/17 History Pantoprazole Sodium 40 mg PO DAILY 07/29/15 07/13/17 History metFORMIN [Glucophage] 1,000 mg PO BID 07/29/15 07/13/17 History FLUoxetine [PROzac] 60 mg PO DAILY 10/30/15 07/13/17 History Ferrous Sulfate 325 mg PO BID 05/02/16 07/13/17 History Levothyroxine Tab [Synthroid Tab] 0.05 mg PO DAILY 05/02/16 07/13/17 History Albuterol/Ipratropium Neb [Duoneb] 3 mg RESP TX Q8HR PRN 02/06/17 07/13/17 History Fluticasone/Salmeterol 250-50 1 puff INH BID 02/06/17 07/13/17 History [Advair 250-50] Folic Acid Tab 1 mg PO DAILY 02/06/17 07/13/17 History Lisinopril 20 mg PO DAILY 02/06/17 07/13/17 History Meloxicam 7.5 mg PO BID 02/06/17 07/13/17 History Methotrexate Tab 6 tablet PO TU 02/06/17 07/13/17 History Multivitamin [Multivitamins] 1 each PO QAM 02/06/17 07/13/17 History Pregabalin [Lyrica] 150 mg PO BID 02/06/17 07/13/17 History Trazodone HCl 100 mg PO BEDTIME 02/06/17 07/13/17 History clonazePAM TAB [KlonoPIN] 0.25 mg PO TID 02/06/17 07/13/17 History sulfaSALAzine [Azulfidine] 500 mg PO BID 02/06/17 07/13/17 History predniSONE TAB [PredniSONE] 5 mg PO DAILY 02/07/17 07/13/17 History Acetaminophen Tab [Tylenol Tab] 1,000 mg PO Q6H PRN 07/13/17 07/13/17 History Cetirizine Tab [ZyrTEC Tab] 10 mg PO DAILY 07/13/17 07/13/17 History Cyanocobalamin Inj [Vitamin B12 1,000 mcg IM Q30D 07/13/17 07/13/17 History Inj] Magnesium Hydroxide Susp [Milk of 30 ml PO Q4H PRN 07/13/17 07/13/17 History Magnesia] Melatonin 5 mg PO BEDTIME 07/13/17 07/13/17 History Oxycodone HCl/Acetaminophen 1 each PO TID 07/13/17 07/13/17 History [Percocet 10-325 mg Tablet] Phenol 1.4% Throat [place] 2 - 3 spray PO Q4H PRN 07/13/17 07/13/17 History [Chloraseptic [place]] Rosuvastatin [Crestor] 10 mg PO BEDTIME 07/13/17 07/13/17 History guaiFENesin/DM LIQUID [Robitussin 10 ml PO Q4H PRN 07/13/17 07/13/17 History Dm] Allergies Allergy/AdvReac Type Severity Reaction Status Date / Time Penicillins Allergy Severe RASH Verified 07/13/17 07:33 Medical,Surgical,& Family Hx - Medical History Cardio: History of: Hypertension, Cardiovascular Problems Psychological: History of: Anxiety Disorders, Depression, Psychiatric/Substance Abuse Tx No history of: ADHD, Behavior Problems, Bipolar Disorder, Previous Suicide Attempt, Schizophrenia, Violent Behavior, Psychiatric Problems Neurology: History of: Peripheral Neuropathy, Vertigo HEENT: History of: Glaucoma Endocrine: History of: Diabetes Mellitus (NIDDM), Dyslipidemia, Thyroid Disorder (HYPOTHRIODISM), Endocrine Problems (diabetic neuropathy) No history of: Diabetes Mellitus (IDDM) Rheumatology: History of;: Rheumatoid Arthritis, Rheumatological Problems No history of;: Gout Respiratory: History of: COPD, Respiratory Problems Genitourinary: History of: Recurring Urinary Tract Infections Gastrointestinal: History of: Diverticulitis/ Diverticulosis, GERD, Gastrointestinal Bleed, Pancreatitis (YEARS AGO), Polyps, GI Problems Comment Only: Hemorrhoids (HEMORRHIODS REMOVED 15 YEARS AGO) Musculoskeletal: History of: Back/Neck Problems, Herniated Disk, Osteoporosis Comment Only: Musculoskeletal Problems (COMPRESSION FRACTURE 1 YEAR) Hematology: History of: Clotting Problems (LEFT LEG 1979) Reproductive: History of: Abnormal Pap Smear (40 years ago) - Surgical History Neurologic Surgeries: Patient denies: Neurologic Surgery Abdominal Surgeries: Surgical HX of: Abdominal Surgery (polyps removed 1994), EGD (1989), Hernia Repair (1989) Reproductive Surgeries: Surgical HX of;: Section (1981), Tubal Ligation Orthopedic Surgeries: Surgical HX of;: Orthopedic Surgery, Total Knee Replacement (3 BILATERAL KNEE REPLACEMENT / LAST ONE 5 YEARS AGO) - Family History Family History: Reports;: Family Cancer (colon cancer (mom)), Family Diabetes ( mom), Family Heart Disease (mom, dad), Family Hypertension (mom, dad), Family Psychiatric Problems (daughter) - Social History Smoking Status: Never smoker Frequency of Alcohol Use: None Type of Drug Use: None 12 point system: reviewed and no additional remarkable complaints except as stated - Constitutional Constitutional: Present: as per HPI - EENT Eyes: Present: as per HPI Ears: Present: as per HPI Nose, mouth and throat: Present: as per HPI - Cardiovascular Cardiovascular: Present: as per HPI - Respiratory Respiratory: Present: as per HPI, dyspnea - Gastrointestinal Gastrointestinal: Present: as per HPI, dyspepsia - Genitourinary Genitourinary: Present: as per HPI - Musculoskeletal Musculoskeletal: Present: as per HPI, arthralgias - Neurological Neurological: Present: as per HPI - Psychiatric Psychiatric: Present: as per HPI - Endocrine Endocrine: Present: as per HPI - Hematologic/Lymphatic Hematologic/Lymphatic: Present: as per HPI Exam - Constitutional Vitals: Period Temp Pulse Resp BP Sys/Elise Pulse Ox Last 24 Hr 96.3 F-98.1 F 73-103 16-20 116-151/60-81 91-99 General appearance: normal weight, no acute distress - Head Head exam: Present: normal inspection, normocephalic - Eye Eye exam: Present: other (Lids and conjunctive are unremarkable). Absent: scleral icterus - ENT ENT exam: Present: normal exam, normal oropharynx - Neck Neck exam: Present: normal inspection - Respiratory Respiratory exam: Present: clear to auscultation bilaterally. Absent: rales, rhonchi, wheezes - Cardiovascular Cardiovascular exam: Present: regular rate and rhythm. Absent: diastolic murmur , JVD, systolic murmur - GI/Abdominal GI/Abdominal exam: Present: normal bowel sounds, soft. Absent: ascites, distended, mass, organomegaly, tenderness - Extremities Exam Extremities exam: Present: normal inspection, full ROM - Back Exam Back exam: Present: normal inspection - Neurological Exam Neurological exam: Present: alert, oriented X3 - Psychiatric Psychiatric exam: Present: normal affect, normal mood - Skin Skin exam: Present: normal color, warm, dry Results - Labs CBC & BMP: 07/17/17 05:05 07/18/17 05:40 Lab Results: I have reviewed the past 24 hour labs - Diagnostic Findings Procedure: Chest x-ray: report reviewed by me
[2017-07-18 09:44] LABS: Basophils % 0.1 % (0.0-0.8); Hematocrit 34.6 VOL% (35.7-47.0); Hemoglobin 11.3 GM/DL (12.0-16.0); Immature Granulocytes % 1.7 %; Immature Granulocytes Absolute 0.16 #; Lymphocytes % 10.2 % (21.3-54.2); Mean Corpuscular HGB Conc 32.7 GM/DL (32-36); Mean Corpuscular Hemoglobin 29 PG (27-34); Mean Corpuscular Volume 90.1 FL (87-102); Mean Platelet Volume 10.1 FL (9.6-12.0); Monocytes # 0.6 10*3/uL (0.11-0.8); Monocytes % 5.9 % (1.7-12.7); Neutrophils # 7.9 10*3/uL (1.4-7.4); Neutrophils % 82.1 % (38.7-73.9); Platelet Count 256 T/CUMM (130-400); Red Blood Count 3.84 MC/CUMM (3.8-5.5); Red Cell Distribution Width 16.2 % (9.3-17.3); White Blood Count 9.7 T/CUMM (4-12)
--- NOTE | 2017-07-18 11:21 | Pain Management Progress Note ---
Assessment and Plan (1) Chronic back pain Status: Chronic Assessment and plan: Post TFLESI back pain and activity much improved, consider repeat 3 weeks, PT would be helpful at [facility]. She has lubar spondylosis ans disc collapse DDD with a chronic L4 fx by xrays, Past issues with opioid dependency, violated CSA with Dr. Berrios in the past, less of an issue now that she receives oxycodone tid from [facility] staff. Concurrent use of benzo's worrisome and may want to consider weaning. Exam LBP center/left, no radicular, nor any hip or knee pain, GTB negative. Current Visit: Yes Qualifiers: Back pain location: low back pain Pain - Subjective Interval history: LBP much improved Exam - Constitutional Vitals: Period Temp Pulse Resp BP Sys/Elise Pulse Ox Last 24 Hr 96.3 F-98.1 F 73-103 16-20 116-151/60-81 91-99 Results - Labs CBC & BMP: 07/18/17 05:38 07/18/17 05:40
--- NOTE | 2017-07-18 12:27 | Sleep Medicine Progress Note ---
Assessment and Plan (1) Unspecified sleep apnea Status: Acute Assessment and plan: Given her improvement, we will proceed with home sleep testing tonight for evaluation of possible sleep apnea. Current Visit: Yes (2) Hypertension Status: Chronic Current Visit: Yes Qualifiers: Hypertension type: essential hypertension Qualified Code(s): I10 - Essential (primary) hypertension (3) Diabetes Status: Chronic Current Visit: Yes Qualifiers: Diabetes mellitus type: type 2 Diabetes mellitus complication status: without complication Diabetes mellitus intermediate designer insulin use: without half-way use Qualified Code(s): E11.9 - Type 2 diabetes mellitus without complications Sleep Medicine Subjective Interval history: Patient seems to be doing much better. She has been treated for pneumonia and is now on room air breathing comfortably. I do think she will be stable enough now to proceed with home sleep testing tonight if remains hospitalized. I discussed this with her and she is in agreement. Exam (Progress Note) - Constitutional Vitals: Period Temp Pulse Resp BP Sys/Elise Pulse Ox Last 24 Hr 96.3 F-98.1 F 73-103 16-20 116-133/60-81 91-99 Exam: She is alert and responsive in no acute distress. Pupils equal round reactive to light and accommodation. Extraocular movements intact. Oropharynx with a class III Mallampati exam. Neck supple without adenopathy. Chest with good air movement no focal wheeze or rhonchi. Cardiac exam reveals regular rhythm without murmur or gallop. Abdomen soft nontender but obese. No palpable hepatosplenomegaly. Extremities without increased edema or clubbing. Neurologically, she is grossly intact. Results - Labs CBC & BMP: 07/18/17 05:38 07/18/17 05:40 Lab Results: I have reviewed the past 24 hour labs
--- NOTE | 2017-07-18 13:54 | Pulmonology Progress Note ---
Pulmonary - PN: Subj Interval history: Ms. Monk is a 67 year old white female that is a resident of a [facility]. She has been there for over a year. She has a history of having a chronic neuropathy and back pain. She cannot get around very well. She has never really had any significant lung problems. She does not smoke. She says at the half-way she does not require breathing treatments. She has used Advair in the past. She was seen in because of some chest congestion and coughing this time. She was told she might have left lower lobe pneumonia. She had a nerve block on her back and says her pain is better. She says she had a fairly good night and is breathing better today. She feels like her cough is better and she is not short of breath now. Overall she feels like she is improved. She does not feel like she needs a therapeutic bronchoscopy. Exam (Progress Note) - Constitutional Vitals: Period Temp Pulse Resp BP Sys/Elise Pulse Ox Last 24 Hr 96.3 F-98.1 F 73-103 16-20 116-133/60-83 91-99 Exam: General appearance: no acute distress, over weight, she is lying flat in bed and seems to be comfortable. She does have a bronchitic cough. Overall her cough is better - Head Head exam: Present: normal inspection, normocephalic - Eye Eye exam: Present: EOMI. Absent: scleral icterus Pupils: Present: FRANCESCA - ENT ENT exam: Present: normal exam - Neck Neck exam: Present: normal inspection. Absent: lymphadenopathy, thyromegaly - Respiratory Respiratory exam: Present: decreased breath sounds (She has slight decreased breath sounds in the bases because of her size.), She seems to be moving air okay without any wheezing or rhonchi now. - Cardiovascular Cardiovascular exam: Present: regular rate and rhythm. Absent: gallop, systolic murmur - GI/Abdominal GI/Abdominal exam: Present: normal bowel sounds, soft. Absent: distended, organomegaly, tenderness - Extremities Exam Extremities exam: Absent: calf tenderness, edema, he can move her extremities okay. - Back Exam Back exam: Absent: CVA tenderness (L), CVA tenderness (R) - Neurological Exam Neurological exam: Present: alert, oriented X3, CN II-XII intact - Psychiatric Psychiatric exam: Present: anxious - Skin Skin exam: Present: warm, dry Results - Labs CBC & BMP: 07/18/17 05:38 07/18/17 05:40 Assessment and Plan (1) Obesity Status: Acute Assessment and plan: The patient is quite large and deconditioned and this is causing much of her shortness of breath. She does have a bronchitic cough. She may have a sleep study at some point in the future. Current Visit: Yes (2) Pneumonia Status: Acute Assessment and plan: Clinically the patient is doing fairly well and does not have much symptoms of pneumonia. Chest x-ray showed some very minimal atelectasis in the left base. She mainly has a large hiatal hernia. She feels like she is much better with her breathing and is having less cough. Overall she is quite comfortable Current Visit: No (3) Rheumatoid arthritis Status: Acute Assessment and plan: She takes low-dose prednisone and methotrexate. Current Visit: No (4) Diabetes Status: Chronic Assessment and plan: Her glucose is 144 today. Current Visit: Yes Qualifiers: Diabetes mellitus type: type 2 Diabetes mellitus complication status: without complication Diabetes mellitus intermediate insulin use: without intermediate use Qualified Code(s): E11.9 - Type 2 diabetes mellitus without complications (5) Hypertension Status: Chronic Assessment and plan: She is taking medications for high blood pressure. Current Visit: Yes Qualifiers: Hypertension type: essential hypertension Qualified Code(s): I10 - Essential (primary) hypertension (6) Neuropathy Status: Acute Assessment and plan: She has chronic pain problems and can not ambulate very well. Current Visit: No (7) Generalized anxiety disorder Status: Acute Assessment and plan: She does take a lot of medications. She seems to be resting okay today. Current Visit: No (8) Debility Status: Chronic Assessment and plan: The patient does look somewhat chronically ill. I doubt she will do much activity in the future. She does seem to be feeling better today. Current Visit: Yes (9) Hiatal hernia Status: Acute Assessment and plan: She does have a large hiatal hernia and will need to continue with antireflux measures. Current Visit: Yes
[2017-07-18] MEDS: MELATONIN 3 MG TABLET PO SCH (22:17)
[2017-07-18] MEDS: traZODone 50 MG TABLET PO SCH (22:19)
--- NOTE | 2017-07-18 23:21 | Internal Med Progress Note ---
Assessment and Plan (1) Anxiety and depression Status: Chronic Current Visit: Yes (2) LLL pneumonia Status: Acute Current Visit: Yes (3) COPD (chronic obstructive pulmonary disease) Status: Chronic Current Visit: Yes Qualifiers: COPD type: COPD with acute exacerbation Qualified Code(s): J44.1 - Chronic obstructive pulmonary disease with (acute) exacerbation (4) Chronic back pain Status: Chronic Current Visit: Yes Qualifiers: Back pain location: low back pain (5) Debility Status: Chronic Current Visit: Yes (6) Diabetes Status: Chronic Current Visit: Yes Qualifiers: Diabetes mellitus type: type 2 Diabetes mellitus complication status: without complication Diabetes mellitus continuous churn buttermaker insulin use: without penitentiary use Qualified Code(s): E11.9 - Type 2 diabetes mellitus without complications (7) Hypertension Status: Chronic Current Visit: Yes Qualifiers: Hypertension type: essential hypertension Qualified Code(s): I10 - Essential (primary) hypertension Internal Medicine - PN: Subj Interval history: Ms. Monk is a 67 year old female patient who is a resident of [facility]. She has history of COPD, allergic rhinitis, HTN, DM, OA and chronic pain followed by [place] pain management, dementia and anxiety, who presented to ER with hypoxia, URI symptoms and admitted for pneumonia. She has worsening dementia and was placed in [facility] about one year ago, because family could no longer care for her at home. She has been on benzodiazepine and opiates for years and has dependency. Have been attempting to cut back at [facility], but difficult, because patient is frequently asking for pain management, and knows when she has her "pills". Dr. Au has been consulted to see her. Unclear whether she is candidate for injections or has had them in the past. Should be in [facility] records. Will ask for those. She reports not feeling well today, Saturday, Jul 14, and will ask Dr. Au to see her to help with pain management. She has dependency on opiates and she expresses concern for opiates more than the pneumonia she's being treated for. Saturday, Jul 15: She reports not feeling much better today. Adjusting meds and consulting Dr. Elliott Lacy to evaluate for possible mucus plugs. Have asked Dr. Barth to evaluate for suspected LARA. Also, glucose levels need to be addressed; adjusting insulin. Jul 16: She reports doing better today. Continue current regimen. Jul 17: She is breathing better, but she expressed concern about an prior diagnosis of large hiatal hernia and would like that checked. She complains of intermittent upper abdominal pain. Will consult Dr. Mckinney. Jul 18: Doing better and anticipate discharge tomorrow. She is having overnight study for Dr. Barth to assess sleep apnea. Exam (Progress Note) - Constitutional Vitals: Period Temp Pulse Resp BP Sys/Elise Pulse Ox Last 24 Hr 96.1 F-98.1 F 73-112 16-20 113-135/62-83 91-99 Exam: General appearance: no acute distress - Respiratory Respiratory exam: clear to auscultation - Cardiovascular Cardiovascular exam: Present: regular rate and rhythm - GI/Abdominal GI/Abdominal exam: Present: soft and nontender - Extremities Exam Extremities exam: Absent: edema - Neurological Exam Neurological exam: Present: alert - Psychiatric Psychiatric exam: Present: normal mood - Skin Skin exam: Present: warm, dry Results - Labs CBC & BMP: 07/19/17 07:33 07/19/17 07:33
[2017-07-19] MEDS: methylPREDNISolone SOD SUC 40 MG/1 ML VIAL IV SCH ×4 (00:03→17:47)
[2017-07-19] MEDS: ALBUTEROL/IPRATROPIUM 3 ML NEB RESP TX SCH ×3 (03:30→11:02)
[2017-07-19] MEDS: LEVOTHYROXINE 50 MCG TABLET PO SCH (07:03)
[2017-07-19] MEDS: BUDESONIDE 0.25 MG/2 ML NEB RESP TX SCH (07:29)
[2017-07-19 07:56] LABS: Basophils % 0.2 % (0.0-0.8); Eosinophils # 0.1 10*3/uL (0.0-0.87); Eosinophils % 0.5 % (0.00-10.9); Hematocrit 37.6 VOL% (35.7-47.0); Hemoglobin 12.5 GM/DL (12.0-16.0); Immature Granulocytes % 2.1 %; Immature Granulocytes Absolute 0.31 #; Lymphocytes # 2.6 10*3/uL (1.4-4.0); Lymphocytes % 17.4 % (21.3-54.2); Mean Corpuscular HGB Conc 33.2 GM/DL (32-36); Mean Corpuscular Hemoglobin 30 PG (27-34); Mean Corpuscular Volume 89.1 FL (87-102); Mean Platelet Volume 9.7 FL (9.6-12.0); Monocytes % 6.9 % (1.7-12.7); Neutrophils # 10.8 10*3/uL (1.4-7.4); Neutrophils % 72.9 % (38.7-73.9); Red Blood Count 4.22 MC/CUMM (3.8-5.5); Red Cell Distribution Width 16.3 % (9.3-17.3)
[2017-07-19 08:04] LABS: Platelet Count 327 T/CUMM (130-400); White Blood Count 14.9 T/CUMM (4-12)
[2017-07-19 08:28] LABS: Calcium 9.1 MG/DL (8.5-10.1); Potassium 3.8 MMOL/L (3.5-5.1)
--- NOTE | 2017-07-19 08:32 | Pulmonology Progress Note ---
Pulmonary - PN: Subj Interval history: Ms. Monk is a 67 year old white female that is a resident of a [facility]. She has been there for over a year. She has a history of having a chronic neuropathy and back pain. She cannot get around very well. She has never really had any significant lung problems. She does not smoke. She says at the long term she does not require breathing treatments. She has used Advair in the past. She was seen in because of some chest congestion and coughing this time. She was told she might have left lower lobe pneumonia. She had a nerve block on her back and says her pain is better. She says she had a fairly good night and is breathing better today. She says she is feeling well now and wants to go home. She feels like her breathing is much better today. Exam (Progress Note) - Constitutional Vitals: Period Temp Pulse Resp BP Sys/Elise Pulse Ox Last 24 Hr 96.1 F-98.1 F 86-112 16-20 113-135/57-83 89-99 Exam: General appearance: no acute distress, over weight, she is lying flat in bed and seems to be comfortable. Her cough is much improved. - Head Head exam: Present: normal inspection, normocephalic - Eye Eye exam: Present: EOMI. Absent: scleral icterus Pupils: Present: FRANCESCA - ENT ENT exam: Present: normal exam - Neck Neck exam: Present: normal inspection. Absent: lymphadenopathy, thyromegaly - Respiratory Respiratory exam: Present: Her lungs have good breath sounds bilaterally now with no wheezing or rhonchi. - Cardiovascular Cardiovascular exam: Present: regular rate and rhythm. Absent: gallop, systolic murmur - GI/Abdominal GI/Abdominal exam: Present: normal bowel sounds, soft. Absent: distended, organomegaly, tenderness - Extremities Exam Extremities exam: Absent: calf tenderness, edema, he can move her extremities okay. - Back Exam Back exam: Absent: CVA tenderness (L), CVA tenderness (R) - Neurological Exam Neurological exam: Present: alert, oriented X3, CN II-XII intact - Psychiatric Psychiatric exam: She looks comfortable today. - Skin Skin exam: Present: warm, dry Results - Labs CBC & BMP: 07/19/17 07:33 07/19/17 07:33 Assessment and Plan (1) Obesity Status: Acute Assessment and plan: The patient is quite large and deconditioned and this is causing much of her shortness of breath. Her cough and congestion are much improved Current Visit: Yes (2) Pneumonia Status: Acute Assessment and plan: Clinically the patient is doing fairly well and does not have much symptoms of pneumonia. Chest x-ray showed some very minimal atelectasis in the left base. She mainly has a large hiatal hernia. Bronchitic cough is better and she says she is breathing much better now. She says she is feeling well and can go home today. Current Visit: No (3) Rheumatoid arthritis Status: Acute Assessment and plan: She takes low-dose prednisone and methotrexate. Current Visit: No (4) Diabetes Status: Chronic Assessment and plan: Her glucose is 68 today. Current Visit: Yes Qualifiers: Diabetes mellitus type: type 2 Diabetes mellitus complication status: without complication Diabetes mellitus terminal carman insulin use: without fci use Qualified Code(s): E11.9 - Type 2 diabetes mellitus without complications (5) Hypertension Status: Chronic Assessment and plan: She is taking medications for high blood pressure. She appears to be stable medically. Current Visit: Yes Qualifiers: Hypertension type: essential hypertension Qualified Code(s): I10 - Essential (primary) hypertension (6) Neuropathy Status: Acute Assessment and plan: She has chronic pain problems and can not ambulate very well. Her pain seems to be better today. Current Visit: No (7) Generalized anxiety disorder Status: Acute Assessment and plan: She does take a lot of medications. She seems to be resting okay today. Current Visit: No (8) Debility Status: Chronic Assessment and plan: The patient does look somewhat chronically ill. I doubt she will do much activity in the future. She does seem to be feeling better today. She says she feels like going back to the long term today. Current Visit: Yes (9) Hiatal hernia Status: Acute Assessment and plan: She does have a large hiatal hernia and will need to continue with antireflux measures. Current Visit: Yes
[2017-07-19] MEDS: INSULIN REGULAR 100 UNIT/ML SUBCUT SCH ×3 (08:59→16:26)
[2017-07-19] MEDS: INSULIN GLARGINE 100 UNIT/ML SUBCUT SCH ×2 (09:00→16:26)
[2017-07-19] MEDS: FERROUS SULFATE 325 MG TABLET PO SCH (10:03)
[2017-07-19] MEDS: FUROSEMIDE 40 MG/4 ML VIAL IV SCH (10:03)
[2017-07-19] MEDS: DOCUSATE SODIUM 100 MG CAPSULE PO SCH (10:03)
[2017-07-19] MEDS: sulfaSALAzine 500 MG TABLET PO SCH (10:03)
[2017-07-19] MEDS: GABAPENTIN 100 MG CAPSULE PO SCH ×3 (10:04→15:53)
[2017-07-19] MEDS: metFORMIN 500 MG TABLET PO SCH (10:04)
[2017-07-19] MEDS: CETIRIZINE 10 MG TABLET PO SCH (10:04)
[2017-07-19] MEDS: FLUoxetine 20 MG CAPSULE PO SCH (10:04)
[2017-07-19] MEDS: LEVOFLOXACIN INJ 500 MG in PREMIX 1 EACH IV SCH (10:04)
[2017-07-19] MEDS: GLIMEPIRIDE 2 MG TABLET PO SCH (10:04)
[2017-07-19] MEDS: PANTOPRAZOLE 40 MG TABLET PO SCH (10:04)
[2017-07-19] MEDS: LORazepam 2 MG/1 ML VIAL IV PRN ×2 (10:09→13:58)
[2017-07-19] MEDS: oxyCODONE/ACETAMINOPHEN 5-325 MG TABLET PO PRN (10:10)
--- NOTE | 2017-07-19 12:50 | Sleep Medicine Progress Note ---
Assessment and Plan (1) Unspecified sleep apnea Status: Acute Assessment and plan: Patient does have evidence of obstructive sleep apnea on home sleep testing. She will be scheduled for outpatient polysomnography with CPAP titration. Current Visit: Yes (2) Hypertension Status: Chronic Current Visit: Yes Qualifiers: Hypertension type: essential hypertension Qualified Code(s): I10 - Essential (primary) hypertension (3) Diabetes Status: Chronic Current Visit: Yes Qualifiers: Diabetes mellitus type: type 2 Diabetes mellitus complication status: without complication Diabetes mellitus termite technician insulin use: without halfway use Qualified Code(s): E11.9 - Type 2 diabetes mellitus without complications Sleep Medicine Subjective Interval history: Patient did undergo home sleep testing last night. Her study did reveal significant sleep apnea with an RDI of 19.9 and O2 desaturation to lows of 75%. Discharge is anticipated today. We will set her up for outpatient sleep study with CPAP titration. Exam (Progress Note) - Constitutional Vitals: Period Temp Pulse Resp BP Sys/Elise Pulse Ox Last 24 Hr 96.1 F-97.9 F 86-112 18-20 112-135/57-81 89-99 Exam: She is alert and responsive in no acute distress. Pupils equal round reactive to light and accommodation. Extraocular movements intact. Oropharynx with a class III Mallampati exam. Neck supple without adenopathy. Chest with good air movement no focal wheeze or rhonchi. Cardiac exam reveals regular rhythm without murmur or gallop. Abdomen soft nontender but obese. No palpable hepatosplenomegaly. Extremities without increased edema or clubbing. Neurologically, she is grossly intact. Results - Labs CBC & BMP: 07/19/17 07:33 07/19/17 07:33 Lab Results: I have reviewed the past 24 hour labs Specialty Discharge - Follow Up or Referrals
--- NOTE | 2017-07-19 14:20 | Discharge Summary ---
Hospital Course - Hospital Course Hospital Course: Ms. Monk is a 67 year old female patient who is a resident of [facility]. She has history of COPD, allergic rhinitis, HTN, DM, OA and chronic pain followed by [facility] pain management, dementia and anxiety, who presented to ER with hypoxia, URI symptoms and admitted for pneumonia. She has improved steadily over the last few days with treatment for LLL pneumonia and COPD exacerbation. Also, she has an outpatient appointment with Dr. Barth for sleep study. She has signs and symptoms of sleep apnea. She will need to follow up with pain management to help wean her off of opiates. Will have skilled nursing psych nurse help to wean her off of benzodiazepines and place her on appropriate antidepressants as needed, and if possible. She may have to continue a low dose benzodiazepine, but we will try to get her off of those. If she has to have a low dose opiate at all, will not continue benzodiazepine. Diagnosis - Discharge Diagnosis (1) Anxiety and depression Status: Chronic (2) LLL pneumonia Status: Acute (3) COPD (chronic obstructive pulmonary disease) Status: Chronic (4) Chronic back pain Status: Chronic (5) Debility Status: Chronic (6) Diabetes Status: Chronic (7) Hypertension Status: Chronic Specialty Discharge - Follow Up or Referrals Discharge Plan - Discharge Data Disposition: Disch/Xfer to Snf Condition at Discharge: Stable Discharge Diet: low fat, low cholesterol Activity: ambulate only with your walker, as per physical therapy, increase activity as tolerated - Discharge Medications New Docusate Sodium Cap [Colace Cap] 100 mg PO BID capsule Gabapentin Cap/Tab [Neurontin Cap/Tab] 100 mg PO TID #90 capsule Insulin Detemir [Levemir] 20 unit SUBCUT BID #10 ml Levofloxacin Tab [Levaquin Tab] 500 mg PO DAILY #7 tablet Acetaminophen Tab [Tylenol Tab] 500 mg PO BID W/MEALS #60 tablet Insulin Regular [HumuLIN R] See Protocol SUBCUT ACHS unit Continue Glimepiride 2 mg PO BID FLUoxetine [PROzac] 60 mg PO DAILY Cetirizine Tab [ZyrTEC Tab] 10 mg PO DAILY guaiFENesin/DM LIQUID [Robitussin Dm] 10 ml PO Q4H PRN PRN Reason: Congestion Magnesium Hydroxide Susp [Milk of Magnesia] 30 ml PO Q4H PRN PRN Reason: UNTIL BM Phenol 1.4% Throat [place] [Chloraseptic [place]] 2 - 3 spray PO Q4H PRN PRN Reason: Sore Throat Rosuvastatin [Crestor] 10 mg PO BEDTIME Cyanocobalamin Inj [Vitamin B12 Inj] 1,000 mcg IM Q30D Melatonin 5 mg PO BEDTIME Pantoprazole Sodium 40 mg PO DAILY metFORMIN [Glucophage] 1,000 mg PO BID Levothyroxine Tab [Synthroid Tab] 0.05 mg PO DAILY Ferrous Sulfate 325 mg PO BID Albuterol/Ipratropium Neb [Duoneb] 3 mg RESP TX Q8HR PRN PRN Reason: Shortness Of Breath Methotrexate Tab 6 tablet PO TU Folic Acid Tab 1 mg PO DAILY Multivitamin [Multivitamins] 1 each PO QAM Trazodone HCl 100 mg PO BEDTIME Fluticasone/Salmeterol 250-50 [Advair 250-50] 1 puff INH BID Meloxicam 7.5 mg PO BID sulfaSALAzine [Azulfidine] 500 mg PO BID predniSONE TAB [PredniSONE] 5 mg PO DAILY Changed Oxycodone HCl/Acetaminophen [Percocet 10-325 mg Tablet] 1 each PO BID #0 clonazePAM TAB [KlonoPIN] 0.25 mg PO BID W/MEALS #60 Discontinued Acetaminophen Tab [Tylenol Tab] 1,000 mg PO Q6H PRN PRN Reason: Fever Lisinopril 20 mg PO DAILY Pregabalin [Lyrica] 150 mg PO BID - Follow Up or Referral Follow Up: Karen Barth MD [Physician] - - Forms/Instructions Instructions: Pharyngitis (DC), Sepsis (DC), Chronic Back Pain, School Guidance Counselor (GEN) Additional Discharge Instructions: Follow up with Dr. Barth for sleep study (sleep lab). Exam - Constitutional Vitals: Period Temp Pulse Resp BP Sys/Elise Pulse Ox Last 24 Hr 96.1 F-97.9 F 86-112 18-20 112-135/57-81 89-99 Exam: General appearance: no acute distress - Respiratory Respiratory exam: clear to auscultation - Cardiovascular Cardiovascular exam: Present: regular rate and rhythm - GI/Abdominal GI/Abdominal exam: Present: soft and nontender - Extremities Exam Extremities exam: Absent: edema - Neurological Exam Neurological exam: Present: alert - Psychiatric Psychiatric exam: Present: normal mood - Skin Skin exam: Present: warm, dry Discharge Results Labs on day of discharge: Labs from last 24 hours 07/19/17 07/19/17 07/19/17 10:42 07:33 07:33 WBC 14.9 H D RBC 4.22 Hgb 12.5 Hct 37.6 MCV 89.1 MCH 30 MCHC 33.2 RDW 16.3 Plt Count 327 D MPV 9.7 Neut % (Auto) 72.9 Lymph % (Auto) 17.4 L [place] % (Auto) 6.9 Eos % (Auto) 0.5 Baso % (Auto) 0.2 Neut # (Auto) 10.8 H Lymph # (Auto) 2.6 [place] # (Auto) 1.0 H Eos # (Auto) 0.1 Baso # (Auto) 0.0 Immature Gran % 2.1 Nucleated RBC % 0.0 Immature Gran # 0.31 Nucleated RBCs # 0.00 Immature Plt Fraction 0.0 Sodium 136 Potassium 3.8 Chloride 101 Carbon Dioxide 25 Anion Gap 13.8 BUN 35 H Creatinine 1.00 GFR Calculation 67 BUN/Creatinine Ratio 35.00 H Glucose 78 POC Glucose 305 H Calculated Osmolality 278.0 Calcium 9.1 07/19/17 07/18/17 07/18/17 07:02 21:47 15:15 WBC RBC Hgb Hct MCV MCH MCHC RDW Plt Count MPV Neut % (Auto) Lymph % (Auto) [place] % (Auto) Eos % (Auto) Baso % (Auto) Neut # (Auto) Lymph # (Auto) [place] # (Auto) Eos # (Auto) Baso # (Auto) Immature Gran % Nucleated RBC % Immature Gran # Nucleated RBCs # Immature Plt Fraction Sodium Potassium Chloride Carbon Dioxide Anion Gap BUN Creatinine GFR Calculation BUN/Creatinine Ratio Glucose POC Glucose 68 L 289 H 261 H Calculated Osmolality Calcium DS: Provider Date of admission: 07/13/17 11:31 Primary care physician: Sharyn Lacy DO Attending physician on admission: Sharyn Lacy DO Consults: 07/13/17 12:00 Consult to Case Mgmt/Social Srvs [CONS] Routine Reason for Case Mgmt/Social Srvs: Discharge Planning 07/13/17 14:18 Consult to Physician [CONS] Routine Comment: chronic back pain Consulting Provider: Romain Au Person Notified: Shameka Date Notified: 07/15/17 Time Notified: 09:29 Consult Notification Comment: jhon saw 07/1407/14/17 18:59 Consult to Sleep Center [CONS] Routine Reason for Sleep Center: Sleep Center Physician Consult Comment: concern for LARA 07/15/17 17:44 Consult to Physician [CONS] Routine Comment: suspect mucus plugs; copd exacerbation; pna Consulting Provider: Nirmal Lacy Person Notified: John Date Notified: 07/16/17 Time Notified: 09:43 07/15/17 17:57 Consult to Dietitian [CONS] Routine Reason for Dietitian: Diet Recommendations Consult Comment: protein requirements 07/17/17 18:42 Consult to Physician [CONS] Routine Comment: large hiatal hernia Consulting Provider: Yonis Mckinney When should Consulting Provider be notified: In am Person Notified: Elaina Dawson Date Notified: 07/18/17 Time Notified: 08:00 Discharging clinician: Sharyn Lacy DO Expected date of discharge: 07/19/17
[2017-07-19 16:07] VITALS: BP 104/71
== END 2017-07-19 17:56 | DRG 190 ==
LOC: EDUNIT# → N.ED 07:27 → N.EDINP 10:12 → N.5E 11:57
PROVIDERS: ADMIT Internal Medicine; ATTEND Internal Medicine

== ENCOUNTER 2017-12-14 19:57 | Inpatient (IN) ==
[2017-12-14] MEDS ORDERED: cefTRIAXone 1,000 MG in SODIUM CHLORIDE 0.9% 100 ML IV STA (20:36)
[2017-12-14] MEDS ORDERED: ALBUTEROL/IPRATROPIUM 3 ML NEB RESP TX STA (20:36)
[2017-12-14 21:13] LABS: Basophils % 0.3 % (0.0-0.8); Eosinophils # 0.1 10*3/uL (0.0-0.87); Eosinophils % 1.2 % (0.00-10.9); Hematocrit 32.2 VOL% (35.7-47.0); Immature Granulocytes % 0.7 %; Immature Granulocytes Absolute 0.05 #; Lymphocytes # 0.9 10*3/uL (1.4-4.0); Lymphocytes % 11.8 % (21.3-54.2); Mean Corpuscular HGB Conc 31.1 GM/DL (32-36); Mean Corpuscular Hemoglobin 27 PG (27-34); Mean Corpuscular Volume 87.3 FL (87-102); Mean Platelet Volume 9.8 FL (9.6-12.0); Monocytes # 0.5 10*3/uL (0.11-0.8); Monocytes % 7.1 % (1.7-12.7); Neutrophils # 5.9 10*3/uL (1.4-7.4); Neutrophils % 78.9 % (38.7-73.9); Platelet Count 225 T/CUMM (130-400); Red Blood Count 3.69 MC/CUMM (3.8-5.5); Red Cell Distribution Width 17.1 % (9.3-17.3); White Blood Count 7.4 T/CUMM (4-12)
[2017-12-14 21:32] LABS: Alanine Aminotransferase 20 U/L (13-56); Albumin 3.3 G/DL (3.4-5.0); Alkaline Phosphatase 72 U/L (45-117); Aspartate Amino Transferase 31 U/L (0-37); Bilirubin,Total < 0.39 MG/DL (0.2-1.0); Blood Urea Nitrogen 14 MG/DL (7-18); Calcium 8.2 MG/DL (8.5-10.1); Glucose 202 MG/DL (74-106); Osmolality,Calculated 279.8 MOS/KG (273-304); Potassium 3.7 MMOL/L (3.5-5.1); Sodium 137 MMOL/L (136-145); Total Protein 6.2 G/DL (6.4-8.3)
[2017-12-14 22:56] LABS: Apearance,Urine CLEAR (Clear); Bilirubin,Urine Negative (Negative); Blood, Urine Negative (Negative); Glucose,Urine (UA) Negative (Negative); Ketones,Urine Negative (Negative); Nitrite,Urine Negative (Negative); Protein,Urine Negative; RBC,Urine <1 /HPF (0-4); Squamous Epithelial Cell,Urine Occasional /HPF (0-10); Urine Color Yellow (Yellow); Urine Specific Gravity 1.016 (1.001-1.035); WBC,Urine 1 /HPF (0-6)
[2017-12-14] MEDS ORDERED: DOCUSATE SODIUM 100 MG CAPSULE PO PRN (23:36)
[2017-12-15] MEDS ORDERED: cefTRIAXone 1,000 MG VIAL ONE (00:17)
[2017-12-15] MEDS ORDERED: DEXTROSE 50% 25 GM/50 ML VIAL IV PRN (00:26)
[2017-12-15] MEDS ORDERED: GLUCAGON 1 MG VIAL IM PRN (00:26)
[2017-12-15] MEDS: SODIUM CHLORIDE 0.9% 1,000 ML IV SCH ×2 (03:14→15:04)
[2017-12-15] MEDS: ENOXAPARIN 40 MG/0.4 ML SYRINGE SUBCUT SCH ×2 (03:14→21:45)
[2017-12-15] MEDS: guaiFENesin/DM ER 600-30 MG TABLET PO PRN (03:14)
[2017-12-15] MEDS: ZALEPLON 5 MG CAPSULE PO PRN ×2 (03:14→21:44)
[2017-12-15] MEDS: ALBUTEROL/IPRATROPIUM 3 ML NEB RESP TX SCH ×5 (03:28→19:24)
[2017-12-15] MEDS ORDERED: INSULIN LISPRO 100 UNIT/ML SUBCUT SCH (06:00)
[2017-12-15 07:02] LABS: Basophils % 0.3 % (0.0-0.8); Eosinophils # 0.2 10*3/uL (0.0-0.87); Hematocrit 32.6 VOL% (35.7-47.0); Hemoglobin 10.1 GM/DL (12.0-16.0); Immature Granulocytes % 1.2 %; Immature Granulocytes Absolute 0.09 #; Lymphocytes # 0.8 10*3/uL (1.4-4.0); Mean Corpuscular Hemoglobin 27 PG (27-34); Mean Corpuscular Volume 87.6 FL (87-102); Mean Platelet Volume 9.7 FL (9.6-12.0); Monocytes # 0.6 10*3/uL (0.11-0.8); Monocytes % 7.6 % (1.7-12.7); Neutrophils % 78.9 % (38.7-73.9); Platelet Count 191 T/CUMM (130-400); Red Blood Count 3.72 MC/CUMM (3.8-5.5); Red Cell Distribution Width 17.3 % (9.3-17.3); White Blood Count 7.6 T/CUMM (4-12)
[2017-12-15 07:29] LABS: Calcium 8.2 MG/DL (8.5-10.1); Potassium 3.7 MMOL/L (3.5-5.1)
[2017-12-15] MEDS: INSULIN GLARGINE 100 UNIT/ML SUBCUT SCH ×3 (08:49→21:45)
[2017-12-15] MEDS ORDERED: AZITHROMYCIN 250 MG TABLET PO SCH (09:00)
[2017-12-15] MEDS ORDERED: MAGNESIUM HYDROXIDE SUSP 30 ML UDCUP PO PRN (09:14)
[2017-12-15] MEDS ORDERED: CYANOCOBALAMIN 1000 MCG/1 ML VIAL IM SCH (09:30)
[2017-12-15] MEDS: traZODone 50 MG TABLET PO SCH ×3 (10:01→21:51)
[2017-12-15] MEDS: methylPREDNISolone SOD SUC 40 MG/1 ML VIAL IV SCH ×2 (10:02→21:45)
[2017-12-15] MEDS: DOCUSATE SODIUM 100 MG CAPSULE PO SCH ×2 (10:02→21:44)
[2017-12-15] MEDS: SULFAMETHOX/TRIMETHOPRIM 800-160 MG TABLET PO SCH ×2 (10:02→21:43)
[2017-12-15] MEDS: MEROPENEM 1,000 MG in SYRINGE 1 EACH IV SCH ×2 (10:04→21:49)
[2017-12-15] MEDS: INSULIN REGULAR 100 UNIT/ML SUBCUT SCH ×3 (11:48→21:46)
[2017-12-15] MEDS: PREGABALIN 75 MG CAPSULE PO SCH ×2 (15:02→21:43)
[2017-12-15] MEDS: FERROUS SULFATE 325 MG TABLET PO SCH (21:43)
[2017-12-15] MEDS: guaiFENesin/DM ER 600-30 MG TABLET PO SCH (21:43)
[2017-12-15] MEDS: sulfaSALAzine 500 MG TABLET PO SCH (21:43)
[2017-12-15] MEDS: clonazePAM 0.5 MG TABLET PO SCH (21:44)
[2017-12-15] MEDS: FLUTICASONE/SALMETEROL 250-50 DISKUS 14 DOSE INH SCH (21:50)
[2017-12-15] MEDS: GLIMEPIRIDE 4 MG TABLET PO SCH (21:50)
[2017-12-15] MEDS ORDERED: cefTRIAXone 1,000 MG in SYRINGE 1 EACH IV SCH (23:15)
[2017-12-16] MEDS: ALBUTEROL/IPRATROPIUM 3 ML NEB RESP TX SCH ×7 (00:15→23:38)
[2017-12-16] MEDS: SODIUM CHLORIDE 0.9% 1,000 ML IV SCH ×3 (04:28→20:47)
[2017-12-16] MEDS: LEVOTHYROXINE 88 MCG TABLET PO SCH (05:59)
[2017-12-16 06:53] LABS: Basophils % 0.2 % (0.0-0.8); Hematocrit 32.7 VOL% (35.7-47.0); Hemoglobin 10.2 GM/DL (12.0-16.0); Immature Granulocytes % 1.3 %; Immature Granulocytes Absolute 0.06 #; Lymphocytes # 0.5 10*3/uL (1.4-4.0); Mean Corpuscular HGB Conc 31.2 GM/DL (32-36); Mean Corpuscular Hemoglobin 28 PG (27-34); Mean Corpuscular Volume 88.4 FL (87-102); Mean Platelet Volume 9.9 FL (9.6-12.0); Monocytes # 0.2 10*3/uL (0.11-0.8); Monocytes % 4.5 % (1.7-12.7); Platelet Count 204 T/CUMM (130-400); Red Cell Distribution Width 17.3 % (9.3-17.3); White Blood Count 4.7 T/CUMM (4-12)
[2017-12-16 07:24] LABS: Calcium 7.7 MG/DL (8.5-10.1); Osmolality,Calculated 285.8 MOS/KG (273-304); Potassium 4.4 MMOL/L (3.5-5.1)
[2017-12-16] MEDS ORDERED: MAGNESIUM SULF RIDER 2 GM in PREMIX 1 EACH IV PRN (08:21)
[2017-12-16] MEDS ORDERED: MAGNESIUM SULF RIDER 4 GM in PREMIX 1 EACH IV PRN (08:21)
[2017-12-16] MEDS ORDERED: CALCIUM GLUCONATE 1,000 MG in SODIUM CHLORIDE 0.9% 100 ML IV ONE (09:00)
[2017-12-16] MEDS: MULTIVITAMIN (CENTRUM) TABLET PO SCH (09:12)
[2017-12-16] MEDS: SULFAMETHOX/TRIMETHOPRIM 800-160 MG TABLET PO SCH ×2 (09:13→20:44)
[2017-12-16] MEDS: FERROUS SULFATE 325 MG TABLET PO SCH ×2 (09:14→20:46)
[2017-12-16] MEDS: FLUoxetine 20 MG CAPSULE PO SCH (09:14)
[2017-12-16] MEDS: sulfaSALAzine 500 MG TABLET PO SCH ×2 (09:14→20:46)
[2017-12-16] MEDS: FOLIC ACID 1 MG TABLET PO SCH (09:14)
[2017-12-16] MEDS: guaiFENesin/DM ER 600-30 MG TABLET PO SCH ×2 (09:15→20:45)
[2017-12-16] MEDS: PREGABALIN 75 MG CAPSULE PO SCH ×3 (09:15→20:43)
[2017-12-16] MEDS: GLIMEPIRIDE 4 MG TABLET PO SCH ×2 (09:15→20:44)
[2017-12-16] MEDS: traZODone 50 MG TABLET PO SCH ×3 (09:16→20:48)
[2017-12-16] MEDS: DOCUSATE SODIUM 100 MG CAPSULE PO SCH ×2 (09:16→20:53)
[2017-12-16] MEDS: methylPREDNISolone SOD SUC 40 MG/1 ML VIAL IV SCH ×2 (09:17→20:46)
[2017-12-16] MEDS: MEROPENEM 1,000 MG in SYRINGE 1 EACH IV SCH ×2 (09:17→20:48)
[2017-12-16] MEDS: INSULIN REGULAR 100 UNIT/ML SUBCUT SCH ×4 (09:18→22:36)
[2017-12-16] MEDS: FLUTICASONE/SALMETEROL 250-50 DISKUS 14 DOSE INH SCH ×2 (09:19→20:47)
[2017-12-16] MEDS: INSULIN GLARGINE 100 UNIT/ML SUBCUT SCH ×2 (09:19→09:20)
[2017-12-16] MEDS: guaiFENesin 200 MG/10 ML UDCUP PO PRN ×2 (10:59→15:20)
[2017-12-16] MEDS: clonazePAM 0.5 MG TABLET PO SCH (20:43)
[2017-12-16] MEDS: ENOXAPARIN 40 MG/0.4 ML SYRINGE SUBCUT SCH (20:46)
[2017-12-17] MEDS: ALBUTEROL/IPRATROPIUM 3 ML NEB RESP TX SCH ×6 (03:17→23:20)
[2017-12-17] MEDS: guaiFENesin 200 MG/10 ML UDCUP PO PRN ×3 (04:23→13:06)
[2017-12-17] MEDS: SODIUM CHLORIDE 0.9% 1,000 ML IV SCH (06:59)
[2017-12-17] MEDS: LEVOTHYROXINE 88 MCG TABLET PO SCH (06:59)
[2017-12-17] MEDS: INSULIN REGULAR 100 UNIT/ML SUBCUT SCH ×4 (08:32→20:57)
[2017-12-17] MEDS: methylPREDNISolone SOD SUC 40 MG/1 ML VIAL IV SCH ×2 (08:33→20:57)
[2017-12-17] MEDS: INSULIN GLARGINE 100 UNIT/ML SUBCUT SCH (08:33)
[2017-12-17] MEDS: MEROPENEM 1,000 MG in SYRINGE 1 EACH IV SCH ×2 (08:34→20:56)
[2017-12-17] MEDS: MULTIVITAMIN (CENTRUM) TABLET PO SCH (08:35)
[2017-12-17] MEDS: traZODone 50 MG TABLET PO SCH ×3 (08:35→21:04)
[2017-12-17] MEDS: SULFAMETHOX/TRIMETHOPRIM 800-160 MG TABLET PO SCH ×2 (08:35→20:54)
[2017-12-17] MEDS: FLUoxetine 20 MG CAPSULE PO SCH (08:35)
[2017-12-17] MEDS: FERROUS SULFATE 325 MG TABLET PO SCH ×2 (08:35→20:55)
[2017-12-17] MEDS: sulfaSALAzine 500 MG TABLET PO SCH ×2 (08:35→20:55)
[2017-12-17] MEDS: PREGABALIN 75 MG CAPSULE PO SCH ×3 (08:35→20:54)
[2017-12-17] MEDS: DOCUSATE SODIUM 100 MG CAPSULE PO SCH ×2 (08:36→20:55)
[2017-12-17] MEDS: FOLIC ACID 1 MG TABLET PO SCH (08:36)
[2017-12-17] MEDS: GLIMEPIRIDE 4 MG TABLET PO SCH ×2 (08:36→20:56)
[2017-12-17] MEDS: FLUTICASONE/SALMETEROL 250-50 DISKUS 14 DOSE INH SCH ×2 (08:37→21:04)
[2017-12-17] MEDS: guaiFENesin/DM ER 600-30 MG TABLET PO SCH ×2 (08:37→20:54)
[2017-12-17] MEDS ORDERED: METHOTREXATE 2.5 MG TABLET PO SCH (09:14)
[2017-12-17] MEDS: BENZONATATE 100 MG CAPSULE PO PRN ×2 (17:38→20:54)
[2017-12-17] MEDS ORDERED: ONDANSETRON 4 MG/2 ML VIAL IV PRN (20:01)
[2017-12-17] MEDS: clonazePAM 0.5 MG TABLET PO SCH (20:55)
[2017-12-17] MEDS: ENOXAPARIN 40 MG/0.4 ML SYRINGE SUBCUT SCH (20:58)
[2017-12-18] MEDS: ALBUTEROL/IPRATROPIUM 3 ML NEB RESP TX SCH ×6 (03:20→23:50)
[2017-12-18] MEDS: LEVOTHYROXINE 88 MCG TABLET PO SCH (06:54)
[2017-12-18] MEDS: methylPREDNISolone SOD SUC 40 MG/1 ML VIAL IV SCH ×2 (09:00→20:49)
[2017-12-18] MEDS: INSULIN REGULAR 100 UNIT/ML SUBCUT SCH ×4 (09:00→20:48)
[2017-12-18] MEDS: INSULIN GLARGINE 100 UNIT/ML SUBCUT SCH (09:01)
[2017-12-18] MEDS: MEROPENEM 1,000 MG in SYRINGE 1 EACH IV SCH ×2 (09:01→20:53)
[2017-12-18] MEDS: SULFAMETHOX/TRIMETHOPRIM 800-160 MG TABLET PO SCH ×2 (09:02→20:37)
[2017-12-18] MEDS: FOLIC ACID 1 MG TABLET PO SCH (09:02)
[2017-12-18] MEDS: FLUoxetine 20 MG CAPSULE PO SCH (09:02)
[2017-12-18] MEDS: sulfaSALAzine 500 MG TABLET PO SCH ×2 (09:02→20:36)
[2017-12-18] MEDS: FERROUS SULFATE 325 MG TABLET PO SCH ×2 (09:02→20:37)
[2017-12-18] MEDS: PREGABALIN 75 MG CAPSULE PO SCH ×3 (09:02→20:38)
[2017-12-18] MEDS: DOCUSATE SODIUM 100 MG CAPSULE PO SCH ×2 (09:02→20:37)
[2017-12-18] MEDS: guaiFENesin/DM ER 600-30 MG TABLET PO SCH ×2 (09:02→20:36)
[2017-12-18] MEDS: traZODone 50 MG TABLET PO SCH ×3 (09:03→20:43)
[2017-12-18] MEDS: GLIMEPIRIDE 4 MG TABLET PO SCH ×2 (09:03→20:37)
[2017-12-18] MEDS: FLUTICASONE/SALMETEROL 250-50 DISKUS 14 DOSE INH SCH ×2 (09:04→20:36)
[2017-12-18] MEDS: guaiFENesin 200 MG/10 ML UDCUP PO PRN ×2 (10:04→23:37)
[2017-12-18] MEDS: MULTIVITAMIN (CENTRUM) TABLET PO SCH (10:05)
[2017-12-18] MEDS ORDERED: BISACODYL 5 MG TABLET PO PRN (14:26)
[2017-12-18] MEDS: clonazePAM 0.5 MG TABLET PO SCH (20:37)
[2017-12-18] MEDS: ENOXAPARIN 40 MG/0.4 ML SYRINGE SUBCUT SCH (20:46)
[2017-12-19] MEDS: ALBUTEROL/IPRATROPIUM 3 ML NEB RESP TX SCH ×3 (04:06→10:31)
[2017-12-19] MEDS: LEVOTHYROXINE 88 MCG TABLET PO SCH (06:28)
[2017-12-19] MEDS: MEROPENEM 1,000 MG in SYRINGE 1 EACH IV SCH (10:21)
[2017-12-19] MEDS: INSULIN REGULAR 100 UNIT/ML SUBCUT SCH ×2 (10:23→12:45)
[2017-12-19] MEDS: INSULIN GLARGINE 100 UNIT/ML SUBCUT SCH (10:25)
[2017-12-19] MEDS: PREGABALIN 75 MG CAPSULE PO SCH (10:26)
[2017-12-19] MEDS: GLIMEPIRIDE 4 MG TABLET PO SCH (10:28)
[2017-12-19] MEDS: guaiFENesin/DM ER 600-30 MG TABLET PO PRN (10:28)
[2017-12-19] MEDS: sulfaSALAzine 500 MG TABLET PO SCH (10:28)
[2017-12-19] MEDS: FERROUS SULFATE 325 MG TABLET PO SCH (10:28)
[2017-12-19] MEDS: FOLIC ACID 1 MG TABLET PO SCH (10:28)
[2017-12-19] MEDS: traZODone 50 MG TABLET PO SCH (10:29)
[2017-12-19] MEDS: DOCUSATE SODIUM 100 MG CAPSULE PO SCH (10:29)
[2017-12-19] MEDS: methylPREDNISolone SOD SUC 40 MG/1 ML VIAL IV SCH (10:32)
[2017-12-19] MEDS: FLUoxetine 20 MG CAPSULE PO SCH (10:44)
[2017-12-19] MEDS: MULTIVITAMIN (CENTRUM) TABLET PO SCH (10:47)
[2017-12-19] MEDS: guaiFENesin/DM ER 600-30 MG TABLET PO SCH (10:47)
[2017-12-19] MEDS: SULFAMETHOX/TRIMETHOPRIM 800-160 MG TABLET PO SCH (10:48)
[2017-12-19 11:18] VITALS: BP 112/76
[2017-12-19] MEDS: FLUTICASONE/SALMETEROL 250-50 DISKUS 14 DOSE INH SCH (11:19)
== END 2017-12-19 12:40 | DRG 871 ==
LOC: EDUNIT# → EDBD → N.ED 19:57 → N.EDINP 23:36 → SUATTDRO 23:36 → N.5E 12-15 00:14
PROVIDERS: ADMIT Internal Medicine; ATTEND Internal Medicine